=== PATIENT | male | born 1970 | race Caucasian/White ===

== ENCOUNTER 2021-05-09 11:12 | Emergency (ER) | payer OTHER, SELFPAY ==
--- NOTE | ~2021-05-09 | CT_ITS ---
EXAMINATION: CT ABDOMEN AND PELVIS WITHOUT CONTRAST CLINICAL INFORMATION: Right flank pain COMPARISON: None TECHNIQUE: Multidetector volumetric imaging was performed from the superior aspect of the liver through the pubic symphysis. Sagittal and coronal reformatted images were obtained on the technologist's workstation. This CT examination was performed using dose optimization techniques as appropriate, variously including the following: *Automated exposure control *Adjustment of mA and/or kV according to patient size (this includes techniques or standardized protocols for targeted exams where dose is matched to indication/reason for exam; i.e. extremities or head) *Use of iterative reconstruction technique DLP: 843 mGy-cm FINDINGS: LUNG BASES: There are postsurgical changes to the right lower lobe/posterior costophrenic angle. LIVER, GALLBLADDER, AND BILIARY TREE: The liver is normal in size, shape, and attenuation. No focal hepatic lesion or biliary ductal dilatation is present. The gallbladder is unremarkable with no evidence of radiopaque gallstones, gallbladder wall thickening, or obvious pericholecystic inflammatory changes. PANCREAS: Unremarkable. SPLEEN: Unremarkable. ADRENAL GLANDS: Unremarkable. KIDNEYS AND URETERS: There is a horseshoe kidney. No renal stone or hydronephrosis is seen. No ureteral dilatation or ureteral stone is seen. BLADDER: Unremarkable. GASTROINTESTINAL TRACT: There is a small umbilical hernia containing small bowel. There is no evidence of obstruction. There is mild diverticulosis of the colon. The small and large bowel are otherwise unremarkable. The appendix is unremarkable. ABDOMINAL WALL: There is a small umbilical hernia containing small bowel. There is no evidence of obstruction. There is evidence of previous suprapubic hernia repair with mesh. There is a left inguinal hernia containing fat. LYMPH NODES: Normal. VASCULAR: Unremarkable. PELVIC VISCERA: Unremarkable. OSSEOUS STRUCTURES: There are mild degenerative changes of the spine. CT/CT abdomen pelvis wo con IMPRESSION: Horseshoe kidney. No stone or hydronephrosis seen. Small umbilical hernia containing small bowel. No evidence of obstruction. Mild diverticulosis. Fleischner guidelines were followed.
[2021-05-09 11:26] VITALS: BP 155/97; PULSE 87; RESP 16; TEMP 37.1; O2SAT 98; BMI 39.1
--- NOTE | 2021-05-09 11:52 | ED.ABDPAIN ---
HPI - Abdominal Pain General Chief Complaint: Abdominal Pain Stated Complaint: flank pain Time Seen by Provider: 05/09/21 11:37 Source: patient and family Mode of arrival: ambulatory Limitations: no limitations History of Present Illness HPI narrative: 50-year-old male presents emergency department complaining of right flank pain. Patient states he has been having on and off pain has been intermittent for the past 3 weeks he went to the walk-in clinic and was sent here to rule out gallstones. Patient states he does not eat spicy foods or fatty foods he states it is worse with certain movements he denies any falls or injuries he states he had hernia repair in the past but does not feel like that kind of pain. Patient denies chest pain or cough he denies dysuria or frequency though he states at times he does have to urinate more than usual. He denies history of kidney stones. MD elicited complaint: abdominal pain and flank pain Pertinent past history: constipation Related Data Allergies Allergy/AdvReac Type Severity Reaction Status Date / Time Calcium Channel Blocking Allergy Shortness Verified 05/09/21 11:30 Agent Dilt of Breath Review of Systems Review of Systems Review of systems: General: Patient denies any fever chills recent illness or falls Musculoskeletal: Denies back pain or body aches or other injuries HEENT: denies headache, runny nose, ear pain Respiratory: denies shortness of breath, cough Cardiovascular: no chest pain or palpitations : denies dysuria, frequency Abdomen: no nausea vomiting right flank pain Extremities: no swelling, no pain Skin: no diaphoresis Yes all other systems are reviewed and are negative [facility] Past Medical History Medical History (Updated 05/09/21 @ 13:11 by Catalino Biswas DO) Anal fissure GERD (gastroesophageal reflux disease) Hernia Surgical History (Updated 05/09/21 @ 11:29 by Nereida Baker) History of lung biopsy Social History Social History Advance Directives: No Advance Directives Information Provided: No Physical Exam ED Vital Signs: Vital Signs - 24 hr 05/09/21 11:26 Temperature 98.7 F Pulse Rate 87 Respiratory Rate 16 Blood Pressure 155/97 H Pulse Oximetry 98 BMI result Body Mass Index 39.1 General: Well-appearing well-nourished in no signs of distress HEENT: Normocephalic atraumatic Neck: No signs of JVD, no masses no tenderness or lymphadenopathy Cardiovascular: Regular rate and rhythm Respiratory: Clear to auscultation bilaterally Abdomen: Soft nontender no masses no CVA tenderness Extremities: Normal pedal pulses no signs of edema Skin: Dry warm no rashes Back: No tenderness full ROM Procedures Procedure Narrative Procedure Narrative: Bedside ultrasound of the right upper quadrant shows dilated gallbladder with no stones no sonographic Booker sign no sludge in the gallbladder and there was no signs of cholecystitis on ultrasound. MDM - Abdominal Pain MDM Narrative Medical decision making narrative: Concern for kidney stone versus gallstone versus diverticulitis or other intra-abdominal pathology requiring surgery or muscle strain. Patient also states he has history of constipation which could be a factor in this as well. I will give the patient fluids Toradol I will check CBC BMP LFTs lipase and urinalysis. I also sent patient for CT scan. Bedside ultrasound performed that showed patient had dilated gallbladder has not since last night but there was no sinus tones and there is no sonographic Booker sign. 1310 CT and labs are unremarkable patient's main concern was nifedipine ointment that he is using for his anal fissures. He states he gets acid reflux explaining follow up with his doctor but again hold until he sees him. Patient otherwise looks well vitals remained stable I will send patient home with PCP follow-up. Differential Diagnosis Differential diagnosis: Likely abdominal pain, calculus of kidney, constipation, diverticulitis, gastroenteritis, gastritis, pancreatitis and renal colic Lab Data Result diagrams: 05/09/21 12:03 05/09/21 12:03 Labs: Lab Results 05/09/21 05/09/21 05/09/21 Range/Units 12:03 12:03 12:33 WBC 4.9 (4.8-10.8) X10*3/uL RBC 5.48 (4.60-5.80) X10*6/uL Hgb 14.7 (14.0-18.0) g/dl Hct 45.2 (42.0-52.0) % MCV 82.5 (80.0-98.0) fL MCH 26.8 L (27.0-33.0) pg MCHC 32.5 (31.0-36.0) g/dl RDW 13.4 (11.0-16.0) % Plt Count 239 (160-400) X10*3/uL MPV 9.8 (9.4-12.4) fL Immature Gran % (Auto) 0.2 (0.0-0.4) % Neut % (Auto) 60.5 (45-73) % Lymph % (Auto) 25.7 (20-40) % Meagher % (Auto) 6.0 (2-11) % Eos % (Auto) 7.4 H (0-4) % Baso % (Auto) 0.2 (0-2) % Lymph # (Auto) 1.3 (1.2-4.9) X10*3/uL Meagher # (Auto) 0.3 (0.1-1.2) X10*3/uL Eos # (Auto) 0.4 (0.0-0.4) X10*3/uL Baso # (Auto) 0.0 (0.0-0.2) X10*3/uL Abs Immat Gran (auto) 0.01 (0.00-0.03) X10*3/uL Absolute Neuts (auto) 2.9 (2.0-8.3) x10*3/uL Absolute Nucleated RBC 0.000 (0.0-0.012) X10*3/uL Nucleated RBC % (auto) 0.0 (0.0-0.2) /100WBC Sodium 138 (135-145) mmol/L Potassium 4.7 (3.3-5.1) mmol/L Chloride 105 (96-108) mmol/L Carbon Dioxide 27 (22-29) mmol/L Anion Gap 11 L (12-20) BUN 10 (9-16) mg/dL Creatinine 0.83 (0.5-1.4) mg/dL Estim Creat Clear Calc 126.6 Estimated GFR > 60 Random Glucose 97 (60-115) mg/dL Calcium 9.3 (8.4-10.2) mg/dL Total Bilirubin 0.7 (0.0-1.0) mg/dL Direct Bilirubin 0.2 (0.0-0.5) mg/dL AST 16 (5-37) U/L ALT 18 (0-40) U/L Alkaline Phosphatase 70 (39-117) U/L Total Protein 7.4 (6.5-8.0) g/dL Albumin 4.0 (3.5-5.0) g/dL Lipase 16 (8-78) U/L Urine Color STRAW Urine Appearance HAZY Urine pH 7.0 (5.0-8.0) Ur Specific [place] 1.010 (1.005-1.025) Urine Protein NEG (NEG-TRACE) MG/DL Urine Glucose (UA) NEG (NEG) MG/DL Urine Ketones NEG (NEG) MG/DL Urine Blood NEG (NEG) Urine Nitrite NEG (NEG) Ur Leukocyte Esterase NEG (NEG) Discharge Plan Discharge Clinical Impression: Abdominal pain Patient Disposition: Home, Self-Care Instructions: Abdominal Pain (ED) Additional Instructions: Please call follow-up care doctor if you have any other concerns please do not hesitate to come back to the emergency department. He can use Tylenol or ibuprofen for pain in the meantime.
[2021-05-09] MEDS: Ketorolac Tromethamine 15 MG/ML VIAL IVPUSH (12:01)
[2021-05-09] MEDS: 0.9 % Sodium Chloride 1,000 ML 999 ML IV (12:01)
[2021-05-09 12:09] LABS: MANUAL DIFF FLAG NO
[2021-05-09 12:19] LABS: Basophils Percent Auto 0.2 % (0-2); Eosinophils Absolute Auto 0.4 X10*3/uL (0.0-0.4); Eosinophils Percent Auto 7.4 % (0-4); Hematocrit 45.2 % (42.0-52.0); Hemoglobin 14.7 g/dl (14.0-18.0); Imm Gran Abs Auto 0.01 X10*3/uL (0.00-0.03); Imm Gran Pct Auto 0.2 % (0.0-0.4); Lymphocytes Absolute Auto 1.3 X10*3/uL (1.2-4.9); Lymphocytes Percent Auto 25.7 % (20-40); Mean Corpuscular HGB Conc 32.5 g/dl (31.0-36.0); Mean Corpuscular Hemoglobin 26.8 pg (27.0-33.0); Mean Corpuscular Volume 82.5 fL (80.0-98.0); Mean Platelet Volume 9.8 fL (9.4-12.4); Monocytes Absolute Auto 0.3 X10*3/uL (0.1-1.2); Neutrophils Absolute Auto 2.9 x10*3/uL (2.0-8.3); Neutrophils Percent Auto 60.5 % (45-73); Platelet Count 239 X10*3/uL (160-400); Red Blood Count 5.48 X10*6/uL (4.60-5.80); Red Cell Distribution Width 13.4 % (11.0-16.0); White Blood Count 4.9 X10*3/uL (4.8-10.8)
[2021-05-09 12:28] LABS: Alanine Aminotransferase 18 U/L (0-40); Alkaline Phosphatase 70 U/L (39-117); Anion Gap 11 (12-20); Aspartate Amino Transferase 16 U/L (5-37); Bilirubin Direct 0.2 mg/dL (0.0-0.5); Bilirubin Total 0.7 mg/dL (0.0-1.0); Blood Urea Nitrogen 10 mg/dL (9-16); Calcium 9.3 mg/dL (8.4-10.2); Carbon Dioxide 27 mmol/L (22-29); Chloride 105 mmol/L (96-108); Creatinine Clr Calc Pharmacy 126.6; Estimated Glomerular Filt Rate > 60; Glucose Random 97 mg/dL (60-115); Lipase 16 U/L (8-78); Potassium 4.7 mmol/L (3.3-5.1); Sodium 138 mmol/L (135-145); Total Protein 7.4 g/dL (6.5-8.0)
[2021-05-09 12:39] LABS: Appearance Urine HAZY; Color Urine STRAW; Glucose Urine UA NEG (NEG); Leukocyte Esterase Urine NEG (NEG); Nitrite Urine NEG (NEG); Urine Blood NEG (NEG); Urine Ketones NEG (NEG); Urine Protein NEG (NEG-TRACE)
== END 2021-05-09 13:51 | disposition home or self-care (01) ==
PROVIDERS: Emergency Provider Student in an Organized Health Care Education/Training Program; PCP Internal Medicine
DX: R10.9 Unspecified abdominal pain (principal); Z79.899 Other long term (current) drug therapy
CPT/HCPCS: 36415; 74176; 80048; 80076; 81003; 83690; 85025; 96361; 96374; 99283; 99284; J1885

== ENCOUNTER 2022-03-24 13:20 | Emergency (ER) | payer OTHER, SELFPAY ==
--- NOTE | ~2022-03-24 | CT_ITS ---
EXAMINATION: CT ABDOMEN AND PELVIS WITH CONTRAST CLINICAL INFORMATION: 51-year-old with right upper quadrant pain COMPARISON: Right upper quadrant ultrasound from the same day and CT scan from 05/09/2021 TECHNIQUE: Multidetector volumetric images were obtained from the superior aspect of the liver through the pubic symphysis following administration 90mL of Omnipaque 350 intravenous contrast. Sagittal and coronal reformatted images were obtained on the technologist's workstation. Oral contrast: No This CT examination was performed using dose optimization techniques as appropriate, variously including the following: *Automated exposure control *Adjustment of mA and/or kV according to patient size (this includes techniques or standardized protocols for targeted exams where dose is matched to indication/reason for exam; i.e. extremities or head) *Use of iterative reconstruction technique DLP: 1036 mGy-cm FINDINGS: LUNG BASES: The visualized lung bases are unremarkable. LIVER, GALLBLADDER, AND BILIARY TREE: The liver is normal in size, shape, and attenuation. No focal hepatic lesion or biliary ductal dilatation is present. The gallbladder is unremarkable with no evidence of radiopaque gallstones, gallbladder wall thickening, or obvious pericholecystic inflammatory changes. PANCREAS: Unremarkable. SPLEEN: Spleen is mildly enlarged measured 13.5 cm. ADRENAL GLANDS: Unremarkable. KIDNEYS AND URETERS: There is a horseshoe kidney without hydroureteronephrosis or nephrolithiasis. BLADDER: Unremarkable. GASTROINTESTINAL TRACT: The small and large bowel are unremarkable. The appendix is unremarkable. ABDOMINAL WALL: There are small but new since previous study fat-containing umbilical and paraumbilical hernia. Patient is status post anterior abdominal wall hernia repair with mesh There is new fat-containing left inguinal hernia. LYMPH NODES: Normal. VASCULAR: Unremarkable. PELVIC VISCERA: Unremarkable. OSSEOUS STRUCTURES: Unremarkable. CT/CT abdomen pelvis w IV con IMPRESSION: 1. Mild splenomegaly. 2. Status post anterior abdominal wall hernia repair with mesh. 3. Small fat-containing umbilical and paraumbilical hernia. 4. Fat-containing left inguinal hernia. 5. Horseshoe kidney Fleischner guidelines were followed.
--- NOTE | ~2022-03-24 | US_ITS ---
EXAMINATION: US ABDOMEN LIMITED CLINICAL INFORMATION: Right flank pain. COMPARISON: CT scan of May 19, 2021 TECHNIQUE: Real-time imaging of the right upper quadrant abdominal viscera. Study was performed at bedside. FINDINGS: PANCREAS: Pancreatic head and body appear unremarkable without evidence of abnormal mass or peripancreatic inflammatory change. The tail is obscured by overlying bowel gas. LIVER: There is increased in echogenicity homogeneously of the liver consistent with fatty infiltration. The liver is normal in size. The liver contour is normal. No focal hepatic lesion. There is no intrahepatic biliary duct dilatation seen. GALLBLADDER: Normal. The gallbladder is physiologically distended without evidence of stones, sludge, polyps, wall thickening or pericholecystic fluid. COMMON BILE DUCT: Normal in caliber measuring 0.4 cm in diameter. RIGHT KIDNEY: Normal. No hydronephrosis. No renal calculi or focal parenchymal lesions. The kidney measures 12.9 cm in maximum dimension. Patient has a known horseshoe kidney with fusion of the lower poles bilaterally. On this ultrasound study the lower poles are not imaged for technical reasons. FREE FLUID: None. US/US abdomen limited IMPRESSION: No right upper quadrant ultrasound abnormality identified. No right hydronephrosis.
[2022-03-24 13:27] VITALS: BP 150/88; PULSE 102; RESP 18; TEMP 36.4; O2SAT 98; BMI 40.7
--- NOTE | 2022-03-24 13:28 | ED.ABDPAIN ---
HPI - Abdominal Pain General Chief Complaint: Abdominal Pain <Kelsie Hui CNP - Last Filed: 03/24/22 13:36> Stated Complaint: R abd pain, bloated <Kelsie Hui CNP - Last Filed: 03/24/22 13:36> Time Seen by Provider: 03/24/22 14:01 <Kelsie Hui CNP - Last Filed: 03/24/22 13:36> Source: patient and family ( at bedside) <J CARLOS Cooney Last Filed: 03/24/22 16:46> Mode of arrival: ambulatory <J CARLOS Cooney Last Filed: 03/24/22 16:46> Limitations: no limitations <J CARLOS Cooney Last Filed: 03/24/22 16:46> History of Present Illness HPI narrative: 51yoM c PMHx of hernia, GERD and anal fissure who is presenting to the ER with at bedside with complaints of right flank abdominal pain that started last week that has been intermittent although is now worsening. Reports associated nausea and increased urinary frequency / urgency. He reports that this started after his dose of methotrexate went from 4 tablets to 6 tablets last week. He denies any fevers, chills, dizziness, headaches, neck pain/ stiffness, trouble swallowing or breathing, chest pain or shortness of breath, dyspnea on exertion, orthopnea, palpitations, paresthesias, radiation of the abdominal pain, black or bloody emesis, black or bloody stools, rashes, recent falls or trauma, urinary bowel incontinence or retention, dysuria, hematuria, abnormal penile discharge, lower extremity edema or calf tenderness, recent travel or sick contacts, others with similar symptoms, possible bad food exposure, recent hospitalization or antibiotic usage or any other symptoms complaints or concerns at this time. <J CARLOS Cooney - Last Filed: 03/24/22 16:46> MD elicited complaint: abdominal pain and flank pain <J CARLOS Cooney Last Filed: 03/24/22 16:46> Onset (ago): week(s) (1) <J CARLOS Cooney Last Filed: 03/24/22 16:46> Pain Consistency: intermittent <J CARLOS Cooney Last Filed: 03/24/22 16:46> Location: R flank <J CARLOS Cooney - Last Filed: 03/24/22 16:46> Severity: mild <J CARLOS Cooney Last Filed: 03/24/22 16:46> Quality: aching <J CARLOS Cooney - Last Filed: 03/24/22 16:46> Radiation: none <J CARLOS Cooney - Last Filed: 03/24/22 16:46> Migration to: no migration <J CARLOS Cooney - Last Filed: 03/24/22 16:46> Exacerbating factors: nothing <J CARLOS Cooney Last Filed: 03/24/22 16:46> Relieving factors: nothing <J CARLOS Cooney Last Filed: 03/24/22 16:46> Associated symptoms: nausea and other ( urinary frequency/urgency) <J CARLOS Cooney Last Filed: 03/24/22 16:46> Related Data Home Medications: Previous Rx's Medication Instructions Recorded cyclobenzaprine 10 mg tablet 10 mg PO Q8H #14 tabs 03/24/22 naproxen 500 mg tablet 500 mg PO BID PRN pain #14 tabs 03/24/22 ondansetron 4 mg disintegrating 4 mg PO Q8H #14 tabs 03/24/22 tablet <Kelsie Hui CNP - Last Filed: 03/24/22 13:36> Allergies/Adverse Reactions: Allergies Allergy/AdvReac Type Severity Reaction Status Date / Time Calcium Channel Blocking Allergy Shortness Verified 03/24/22 13:34 Agent Dilt of Breath <Kelsie Hui CNP - Last Filed: 03/24/22 13:36> Review of Systems Review of Systems Constitutional : No Weight loss, No Fever, No Chills, No Night Sweats, No Fatigue, No Malaise ENT/Mouth : No Hearing loss, No Ear Pain, No Nasal Congestion, No Sinus Pain, No Hoarseness, No sore throat, No Rhinorrhea, No Swallowing Difficulty Eyes: No Eye Pain, No Swelling, No Redness, No Foreign Body, No Discharge, No Vision Changes Cardiovascular : No Chest Pain, No SOB, No Dyspnea on Exertion, No Orthopnea, No Edema, No Palpitations Respiratory : No Cough, No Sputum, No Wheezing, No Smoke Exposure, No Dyspnea Gastrointestinal : + Nausea, No Vomiting, No Diarrhea, No Constipation, + abdominal Pain, No Hematochezia, No Melena Genitourinary : no irregular bleeding, No Dysuria, + Urinary Frequency, No Hematuria, No Urinary Incontinence, + Urgency, + Flank Pain, No Urinary Flow Changes, No Hesitancy Musculoskeletal : No joint pain, + Myalgias, No Joint Swelling Skin : No Skin Lesions, No rash Neuro : No Weakness, No Numbness, No Paresthesias, No Loss of Consciousness, No Dizziness, No Headache Psych : No Anxiety/Panic, No Depression, No SI/HI/AH/VH, No Social Issues, Heme/Lymph: No Bruising, No Bleeding,No Lymphadenopathy Endocrine : No Polyuria, No Polydipsia, No Temperature Intolerance <J CARLOS Cooney - Last Filed: 03/24/22 16:46> Yes all other systems are reviewed and are negative <J CARLOS Cooney - Last Filed: 03/24/22 16:46> [facility] Past Medical History Attestation statement: The following information was validated with the patient. <J CARLOS Cooney - Last Filed: 03/24/22 16:46> Source: old records reviewed, obtained from family and nursing notes reviewed <J CARLOS Cooney - Last Filed: 03/24/22 16:46> Medical History: Medical History Anal fissure GERD (gastroesophageal reflux disease) Hernia <Kelsie Hui CNP - Last Filed: 03/24/22 13:36> Surgical History: Surgical History History of lung biopsy <Kelsie Hui CNP - Last Filed: 03/24/22 13:36> Social History Social History: Social History Smoked in Last 30 Days: No Use of substances other than those prescribed or required for medical reasons: No Advance Directives: No Advance Directives Information Provided: Yes <Kelsie Hui CNP - Last Filed: 03/24/22 13:36> Physical Exam ED Vital Signs: Vital Signs - 24 hr 03/24/22 13:27 03/24/22 15:01 Temperature 97.6 F 98.2 F Pulse Rate 102 H 86 Respiratory Rate 18 16 Blood Pressure 150/88 H 118/82 Pulse Oximetry 98 96 Oxygen Delivery Method Room Air Room Air BMI result Body Mass Index 40.7 <Kelsie Hui CNP - Last Filed: 03/24/22 13:36> Vital Signs - 24 hr 03/24/22 13:27 03/24/22 15:01 Temperature 97.6 F 98.2 F Pulse Rate 102 H 86 Respiratory Rate 18 16 Blood Pressure 150/88 H 118/82 Pulse Oximetry 98 96 Oxygen Delivery Method Room Air Room Air BMI result Body Mass Index 40.7 Vital signs have been reviewed Patient blood pressure 150/88. Pulse 102. Respiration 18. Temperature 97.6 degrees. Oxygen saturation 98% on room air. <J CARLOS Cooney - Last Filed: 03/24/22 16:46> Appearance: Alert. Oriented X3. No acute distress. Head: Normal external exam. Normocephalic. Eyes: PERRLA. EOMI. Conjunctiva and sclera normal. Eyelids normal. ENT: Pharynx normal. Uvula midline. Moist mucous membranes. No trismus noted. No drooling noted. No muffled voice noted. Neck: Normal inspection. Neck supple. FROM. No adenopathy. No meningeal signs. CVS: Normal heart rate and rhythm. Heart sound normal. No murmurs noted. Pulses normal throughout. Respiratory: No respiratory distress. Painless inspiration. Breath sounds normal. No wheezes/rales/rhonchi noted. Chest nontender. No accessory muscle usage noted or decreased air movement noted. Abdomen: Soft and mild tenderness palpation to the right side of the abdomen/right flank. Nondistended. No guarding. No rigidity. Bowel sounds normal in all 4 quadrants. No distention noted. No organomegaly noted. No visible injury noted. No rebound tenderness. Negative Rovsing sign. Negative obturator's sign. Negative psoas sign. Negative Booker sign. Back: No CVA tenderness. Full range of motion noted. Skin: Skin warm and dry. Normal skin color. Normal skin turgor. No rashes/lesions/lacerations noted. Extremities: Extremities exhibit normal range of motion. Extremities nontender. Neuro: Oriented X 3. No motor deficit. No sensory deficit. Reflexes normal. Normal steady gait. CN's II-XII intact bilaterally? <J CARLOS Cooney - Last Filed: 03/24/22 16:46> Course Course Course Narrative: This is an RME: Additional HPI, ROS, PE not included below will be deferred to primary provider. Patient is a 51-year-old male who presents emergency department for evaluation of abdominal pain. Reports right sided abdominal pain, bloating, nausea, dry heaves. symptom onset last week, not worsening, but has no improvement. Reports history of arthritis, currently taking Methotrexate was increased from 4 tablets weekly to 6 tablets weekly, and the following week these symptoms began, states he is insure if this is related. PE: RUQ tenderness to palpation Plan: labs, urinalysis, US ABD <Kelsie Hui CNP - Last Filed: 03/24/22 13:36> Reevaluation(s) Reevaluation #1: 51yoM c PMHx of hernia, GERD and anal fissure who is presenting to the ER with at bedside with complaints of right flank abdominal pain that started last week that has been intermittent although is now worsening. Reports associated nausea and increased urinary frequency / urgency. He reports that this started after his dose of methotrexate went from 4 tablets to 6 tablets last week. This is a 51yoM with R sided abdominal pain, consistent with Possible kidney stone. Differential diagnosis includes UTI vs pyelonephritis. Abdominal exam without peritoneal signs. No evidence of acute abdomen at this time. Well appearing. Moderate suspicion for acute hepatobiliary disease (includng acute cholecystitis). Less likely to represent acute pancreatitis, PUD (including perforation), acute infectious processes (pneumonia, hepatitis), atypical appendicitis, vascular catastrophe, bowel obstruction or viscus perforation. Presentation not consistent with other acute, emergent causes of abdominal pain at this time. Plan: labs, UA, pain control, US abd Limited and a CT scan of abdomen pelvis IV contrast. provide IV fluids, Toradol and Zofran and re-evaluate. <J CARLOS Cooney - Last Filed: 03/24/22 16:46> Time: 14:10 <J CARLOS Cooney - Last Filed: 03/24/22 16:46> Reevaluation #2: labs reviewed - random glucose 124. Otherwise all other labs are within normal limits. - UA within normal limits no evidence of UTI. Imaging - Right upper quadrant ultrasound. IMPRESSION: No right upper quadrant ultrasound abnormality identified. No right hydronephrosis. - CT scan abdomen pelvis with IV contrast IMPRESSION: 1.? Mild splenomegaly. 2.? Status post anterior abdominal wall hernia repair with mesh. 3.? Small fat-containing umbilical and paraumbilical hernia. 4.? Fat-containing left inguinal hernia. 5. Horseshoe kidney Fleischner guidelines were followed. therefore patient most likely muscular skeletal pain or adverse effect to his methotrexate. He is able to tolerate p.o. fluids/solids. Therefore will DC home with symptomatic treatment instructions return if any new or worsening symptoms to follow up with his primary care provider. Patient at bedside Understand and agree with this plan. <J CARLOS Cooney - Last Filed: 03/24/22 16:46> Time: 16:29 <J CARLOS Cooney - Last Filed: 03/24/22 16:46> Medical Decision Making Lab Data MDM Lab Attestation statement: I reviewed the patient's lab results. <J CARLOS Cooney - Last Filed: 03/24/22 16:46> Result Diagrams: 03/24/22 13:42 03/24/22 13:42 <Kelsie Hui CNP - Last Filed: 03/24/22 13:36> Labs: Lab Results 03/24/22 03/24/22 03/24/22 Range/Units 13:42 13:42 14:15 WBC 5.8 (4.8-10.8) X10*3/uL RBC 5.41 (4.60-5.80) X10*6/uL Hgb 15.0 (14.0-18.0) g/dl Hct 44.4 (42.0-52.0) % MCV 82.1 (80.0-98.0) fL MCH 27.7 (27.0-33.0) pg MCHC 33.8 (31.0-36.0) g/dl RDW 14.0 (11.0-16.0) % Plt Count 261 (160-400) X10*3/uL MPV 9.6 (9.4-12.4) fL Immature Gran % (Auto) 0.2 (0.0-0.4) % Neut % (Auto) 62.9 (45-73) % Lymph % (Auto) 26.7 (20-40) % King % (Auto) 5.5 (2-11) % Eos % (Auto) 4.5 H (0-4) % Baso % (Auto) 0.2 (0-2) % Lymph # (Auto) 1.5 (1.2-4.9) X10*3/uL King # (Auto) 0.3 (0.1-1.2) X10*3/uL Eos # (Auto) 0.3 (0.0-0.4) X10*3/uL Baso # (Auto) 0.0 (0.0-0.2) X10*3/uL Abs Immat Gran (auto) 0.01 (0.00-0.03) X10*3/uL Absolute Neuts (auto) 3.6 (2.0-8.3) x10*3/uL Absolute Nucleated RBC 0.000 (0.0-0.012) X10*3/uL Nucleated RBC % (auto) 0.0 (0.0-0.2) /100WBC Sodium 142 (135-145) mmol/L Potassium 4.4 (3.3-5.1) mmol/L Chloride 107 (96-108) mmol/L Carbon Dioxide 25 (22-29) mmol/L Anion Gap 14 (12-20) BUN 13 (9-16) mg/dL Creatinine 0.84 (0.5-1.4) mg/dL Estim Creat Clear Calc 126.3 Estimated GFR > 60 Random Glucose 124 H (60-115) mg/dL Calcium 9.0 (8.4-10.2) mg/dL Magnesium 2.0 (1.6-2.6) mg/dL Total Bilirubin 0.6 (0.0-1.0) mg/dL AST 15 (5-37) U/L ALT 16 (0-40) U/L Alkaline Phosphatase 81 (39-117) U/L Total Protein 6.9 (6.5-8.0) g/dL Albumin 3.9 (3.5-5.0) g/dL Lipase 17 (8-78) U/L Urine Color Yellow Urine Appearance Clear Urine pH 6.0 (5.0-9.0) Ur Specific [place] 1.015 (1.005-1.025) Urine Protein Negative (Neg-Trace) mg/dL Urine Glucose (UA) Negative (Negative) mg/dL Urine Ketones Negative (Negative) mg/dL Urine Blood Negative (Negative) Urine Nitrite Negative (Negative) Ur Leukocyte Esterase Negative (Negative) <Kelsie Hui, RIDING COACH - Last Filed: 03/24/22 13:36> Lab Results 03/24/22 03/24/22 03/24/22 Range/Units 13:42 13:42 14:15 WBC 5.8 (4.8-10.8) X10*3/uL RBC 5.41 (4.60-5.80) X10*6/uL Hgb 15.0 (14.0-18.0) g/dl Hct 44.4 (42.0-52.0) % MCV 82.1 (80.0-98.0) fL MCH 27.7 (27.0-33.0) pg MCHC 33.8 (31.0-36.0) g/dl RDW 14.0 (11.0-16.0) % Plt Count 261 (160-400) X10*3/uL MPV 9.6 (9.4-12.4) fL Immature Gran % (Auto) 0.2 (0.0-0.4) % Neut % (Auto) 62.9 (45-73) % Lymph % (Auto) 26.7 (20-40) % King % (Auto) 5.5 (2-11) % Eos % (Auto) 4.5 H (0-4) % Baso % (Auto) 0.2 (0-2) % Lymph # (Auto) 1.5 (1.2-4.9) X10*3/uL King # (Auto) 0.3 (0.1-1.2) X10*3/uL Eos # (Auto) 0.3 (0.0-0.4) X10*3/uL Baso # (Auto) 0.0 (0.0-0.2) X10*3/uL Abs Immat Gran (auto) 0.01 (0.00-0.03) X10*3/uL Absolute Neuts (auto) 3.6 (2.0-8.3) x10*3/uL Absolute Nucleated RBC 0.000 (0.0-0.012) X10*3/uL Nucleated RBC % (auto) 0.0 (0.0-0.2) /100WBC Sodium 142 (135-145) mmol/L Potassium 4.4 (3.3-5.1) mmol/L Chloride 107 (96-108) mmol/L Carbon Dioxide 25 (22-29) mmol/L Anion Gap 14 (12-20) BUN 13 (9-16) mg/dL Creatinine 0.84 (0.5-1.4) mg/dL Estim Creat Clear Calc 126.3 Estimated GFR > 60 Random Glucose 124 H (60-115) mg/dL Calcium 9.0 (8.4-10.2) mg/dL Magnesium 2.0 (1.6-2.6) mg/dL Total Bilirubin 0.6 (0.0-1.0) mg/dL AST 15 (5-37) U/L ALT 16 (0-40) U/L Alkaline Phosphatase 81 (39-117) U/L Total Protein 6.9 (6.5-8.0) g/dL Albumin 3.9 (3.5-5.0) g/dL Lipase 17 (8-78) U/L Urine Color Yellow Urine Appearance Clear Urine pH 6.0 (5.0-9.0) Ur Specific [place] 1.015 (1.005-1.025) Urine Protein Negative (Neg-Trace) mg/dL Urine Glucose (UA) Negative (Negative) mg/dL Urine Ketones Negative (Negative) mg/dL Urine Blood Negative (Negative) Urine Nitrite Negative (Negative) Ur Leukocyte Esterase Negative (Negative) <J CARLOS Cooney - Last Filed: 03/24/22 16:46> Independent Interpretation Interpretation: Abdominal ultrasound limited EXAMINATION: US ABDOMEN LIMITED CLINICAL INFORMATION: Right flank pain. COMPARISON: CT scan of May 19, 2021 TECHNIQUE: Real-time imaging of the right upper quadrant abdominal viscera. Study was performed at bedside. FINDINGS: PANCREAS: Pancreatic head and body appear unremarkable without evidence of abnormal mass or peripancreatic inflammatory change. The tail is obscured by overlying bowel gas. LIVER: There is increased in echogenicity homogeneously of the liver consistent with fatty infiltration. The liver is normal in size. The liver contour is normal. No focal hepatic lesion. There is no intrahepatic biliary duct dilatation seen. GALLBLADDER: Normal. The gallbladder is physiologically distended without evidence of stones, sludge, polyps, wall thickening or pericholecystic fluid. COMMON BILE DUCT: Normal in caliber measuring 0.4 cm in diameter. RIGHT KIDNEY: Normal. No hydronephrosis. No renal calculi or focal parenchymal lesions. The kidney measures 12.9 cm in maximum dimension. Patient has a known horseshoe kidney with fusion of the lower poles bilaterally. On this ultrasound study the lower poles are not imaged for technical reasons. FREE FLUID: None. US/US abdomen limited IMPRESSION: No right upper quadrant ultrasound abnormality identified. No right hydronephrosis. CT scan abdomen pelvis with IV contrast COMPARISON: CT scan of May 19, 2021 TECHNIQUE: Real-time imaging of the right upper quadrant abdominal viscera. Study was performed at bedside. FINDINGS: PANCREAS: Pancreatic head and body appear unremarkable without evidence of abnormal mass or peripancreatic inflammatory change. The tail is obscured by overlying bowel gas. LIVER: There is increased in echogenicity homogeneously of the liver consistent with fatty infiltration. The liver is normal in size. The liver contour is normal. No focal hepatic lesion. There is no intrahepatic biliary duct dilatation seen. GALLBLADDER: Normal. The gallbladder is physiologically distended without evidence of stones, sludge, polyps, wall thickening or pericholecystic fluid. COMMON BILE DUCT: Normal in caliber measuring 0.4 cm in diameter. RIGHT KIDNEY: Normal. No hydronephrosis. No renal calculi or focal parenchymal lesions. The kidney measures 12.9 cm in maximum dimension. Patient has a known horseshoe kidney with fusion of the lower poles bilaterally. On this ultrasound study the lower poles are not imaged for technical reasons. FREE FLUID: None. US/US abdomen limited IMPRESSION: No right upper quadrant ultrasound abnormality identified. No right hydronephrosis. <J CARLOS Cooney - Last Filed: 03/24/22 16:46> Radiology Impression Discussion of test interpretation with radiology: I have reviewed the radiologist's reading. <J CARLOS Cooney - Last Filed: 03/24/22 16:46> Independent Historian Clinical information obtained from an independent historian. History obtained from or confirmed by: Spouse <J CARLOS Cooney - Last Filed: 03/24/22 16:46> Medications Administered Discontinued Medications Generic Name Dose Route Start Last Admin Trade Name Freq PRN Reason Stop Dose Admin Iohexol 100 ml 03/24/22 15:57 03/24/22 15:58 Iohexol 350 Mg/Ml 100 Ml Infus..Btl IV 03/24/22 15:58 90 ml ONCE ONE Administration Ketorolac Tromethamine 60 mg 03/24/22 14:39 03/24/22 15:33 Ketorolac Tromethamine 60 Mg/2 Ml Vial IM 03/24/22 14:40 60 mg ONCE ONE Administration <Kelsie Hui CNP - Last Filed: 03/24/22 13:36> Medications Administered Discontinued Medications Generic Name Dose Route Start Last Admin Trade Name Freq PRN Reason Stop Dose Admin Iohexol 100 ml 03/24/22 15:57 03/24/22 15:58 Iohexol 350 Mg/Ml 100 Ml Infus..Btl IV 03/24/22 15:58 90 ml ONCE ONE Administration Ketorolac Tromethamine 60 mg 03/24/22 14:39 03/24/22 15:33 Ketorolac Tromethamine 60 Mg/2 Ml Vial IM 03/24/22 14:40 60 mg ONCE ONE Administration <J CARLOS Cooney - Last Filed: 03/24/22 16:46> Discharge Plan Discharge Clinical Impression: Nausea, Right lateral abdominal pain <Kelsie Hui CNP - Last Filed: 03/24/22 13:36> Patient Disposition: Home, Self-Care <Kelsie Hui CNP - Last Filed: 03/24/22 13:36> Instructions: Acute Nausea and Vomiting (ED), Acute Abdominal Pain (ED) <Kelsie Hui CNP - Last Filed: 03/24/22 13:36> Prescriptions: New ondansetron 4 mg tablet,disintegrating 4 mg PO Q8H Qty: 14 0RF naproxen 500 mg tablet 500 mg PO BID PRN (Reason: pain) Qty: 14 0RF cyclobenzaprine 10 mg tablet 10 mg PO Q8H Qty: 14 0RF <Kelsie Hui CNP - Last Filed: 03/24/22 13:36> Referrals: Adam Villanueva III, MD [Primary Care Provider] - 2 days <Kelsie Hui CNP - Last Filed: 03/24/22 13:36>
[2022-03-24 13:47] LABS: Basophils Percent Auto 0.2 % (0-2); Eosinophils Absolute Auto 0.3 X10*3/uL (0.0-0.4); Eosinophils Percent Auto 4.5 % (0-4); Hematocrit 44.4 % (42.0-52.0); Imm Gran Abs Auto 0.01 X10*3/uL (0.00-0.03); Imm Gran Pct Auto 0.2 % (0.0-0.4); Lymphocytes Absolute Auto 1.5 X10*3/uL (1.2-4.9); Lymphocytes Percent Auto 26.7 % (20-40); MANUAL DIFF FLAG NO; Mean Corpuscular HGB Conc 33.8 g/dl (31.0-36.0); Mean Corpuscular Hemoglobin 27.7 pg (27.0-33.0); Mean Corpuscular Volume 82.1 fL (80.0-98.0); Mean Platelet Volume 9.6 fL (9.4-12.4); Monocytes Absolute Auto 0.3 X10*3/uL (0.1-1.2); Monocytes Percent Auto 5.5 % (2-11); Neutrophils Absolute Auto 3.6 x10*3/uL (2.0-8.3); Neutrophils Percent Auto 62.9 % (45-73); Platelet Count 261 X10*3/uL (160-400); Red Blood Count 5.41 X10*6/uL (4.60-5.80); White Blood Count 5.8 X10*3/uL (4.8-10.8)
[2022-03-24 14:10] LABS: Alanine Aminotransferase 16 U/L (0-40); Albumin Level 3.9 g/dL (3.5-5.0); Alkaline Phosphatase 81 U/L (39-117); Anion Gap 14 (12-20); Aspartate Amino Transferase 15 U/L (5-37); Bilirubin Total 0.6 mg/dL (0.0-1.0); Blood Urea Nitrogen 13 mg/dL (9-16); Carbon Dioxide 25 mmol/L (22-29); Chloride 107 mmol/L (96-108); Creatinine Clr Calc Pharmacy 126.3; Estimated Glomerular Filt Rate > 60; Glucose Random 124 mg/dL (60-115); Lipase 17 U/L (8-78); Potassium 4.4 mmol/L (3.3-5.1); Sodium 142 mmol/L (135-145); Total Protein 6.9 g/dL (6.5-8.0)
[2022-03-24 14:21] LABS: Appearance Urine Clear; Color Urine Yellow; Glucose Urine UA Negative (Negative); Leukocyte Esterase Urine Negative (Negative); Nitrite Urine Negative (Negative); Specific Gravity - Urine 1.015 (1.005-1.025); Urine Blood Negative (Negative); Urine Ketones Negative (Negative); Urine Protein Negative (Neg-Trace)
[2022-03-24 15:01] VITALS: BP 118/82; PULSE 86; RESP 16; TEMP 36.8; O2SAT 96
[2022-03-24] MEDS: Ketorolac Tromethamine 60 MG/2 ML VIAL IM (15:33)
[2022-03-24] MEDS: iohexoL 350 MG/ML 100 ML INFUS..BTL IV (15:58)
[2022-03-24 16:32] VITALS: BP 131/84; PULSE 83; TEMP 36.7; O2SAT 95
== END 2022-03-24 17:02 | disposition home or self-care (01) ==
PROVIDERS: Nurse Practitioner Family; Physician Assistant Medical; Emergency Provider Emergency Medicine; PCP Internal Medicine
DX: R10.11 Right upper quadrant pain (principal); R35.0 Frequency of micturition; R11.2 Nausea with vomiting, unspecified; Z79.899 Other long term (current) drug therapy
CPT/HCPCS: 36415; 74177; 76705; 80053; 81003; 83690; 83735; 85025; 99284; J1885; Q9967

== ENCOUNTER 2023-06-12 23:11 | Emergency (ER) | payer OTHER, SELFPAY ==
--- NOTE | ~2023-06-12 | XR_ITS ---
EXAMINATION: XR CHEST CLINICAL INFORMATION: Cough. COMPARISON: None available. TECHNIQUE: 2 views of the chest were obtained. FINDINGS: The cardiomediastinal silhouette is normal. There appears to be minimal scarring right midlung field versus surgical clip. The lungs are otherwise clear. There are no significant pleural effusions. The bony structures and soft tissues are unremarkable. XR/XR chest 2V IMPRESSION: No acute cardiopulmonary disease.
[2023-06-12 23:13] VITALS: BP 149/105; PULSE 112; RESP 18; TEMP 36.6; O2SAT 95; BMI 40.7
[2023-06-12 23:53] VITALS: BP 143/90; PULSE 111; RESP 17; TEMP 36.3; O2SAT 95
--- OUTSIDE RECORDS SUMMARY | 2023-06-13 00:04 | XMS_ITS | Continuity of Care Document ---
Author Organization [facility] Adult Address [address] [place] [address]- Care Team Providers Care Game Breeding Farm Manager Name Role Phone Rossy Salazar Primary Care Physician Encounter [facility] [place] Date(s): 07/03/22 - 08/02/22 [facility] Adult [address] [place] [address]- Allergies, Adverse Reactions, Alerts Substance Reaction Severity Status metoprolol Active Bactrim Active Immunizations Given and Recorded Vaccine Date Status Refusal Reason tetanus/diphtheria/pertussis, acel(Tdap) 10/26/21 Recorded tetanus/diphtheria/pertussis, acel(Tdap) 12/17/10 Recorded SARS-CoV-2 (COVID-19) mRNA BNT-162b2 vac 11/25/20 Recorded SARS-CoV-2 (COVID-19) mRNA BNT-162b2 vac 11/04/20 Recorded influenza virus vaccine, inactivated 01/21/20 Clark rded influenza virus vaccine, inactivated 12/12/14 Clark rded influenza virus vaccine, inactivated 1 11/17/13 Gi joo influenza virus vaccine, inactivated 01/11/13 Clark rded influenza virus vaccine, inactivated 11/18/11 Clark rded pneumococcal 23-valent vaccine 12/26/11 Given tetanus-diphtheria toxoids (Td) 03/22/05 Recorded 1Admin Note: CDC Information Sheet given VIS (10/19/13) Medications cimetidine 400 mg oral tablet 1 tablet, By Mouth, 2 times a day, # 60 tablet, 0 Refills, Maintenance, 07/30/22 7:42:00 EDT, [facility], 170, cm, 07/03/22 7:53:00 EDT, Height Start Date: 07/30/22 Stop Date: 08/29/22 Status: Ordered Flonase 50 mcg/inh nasal spray 1 sprays, Nares, Both, 2 times a day, # 16 Gm, 4 Refills, Maintenance, 07/03/22 7:50:00 EDT, [place],[facility]/pharmacy #[id number], Partial fill upon patient request if the prescription is for a schedule II opioid drug., 1 sprays Nares, Both 2 times a day, 170, c... Start Date: 07/03/22 Status: Ordered Folic Acid Daily, 0 Refills, Maintenance, 06/19/22 9:31:00 EDT, Partial fill upon patient request if the prescription is for a schedule II opioid drug. Start Date: 06/19/22 Status: Ordered lisinopril 10 mg oral tablet 10 mg, 1, tablet, By Mouth, Daily, # 90 tablet, Refills 3, Tot. Refills 3, Maintenance, 07/03/22 7:50:00 EDT, Route to Pharmacy Electronically, [facility]/pharmacy #[id number], Partial fill upon patient request if the prescription is for a schedule II opioid drug.... Start Date: 07/03/22 Status: Ordered methotrexate 2.5 mg oral tablet 1 tablet = 2.5 mg, By Mouth, Every week, # 4 tablet, 0 Refills, Maintenance, 06/19/22 9:31:00 EDT, Tablet, Partial fill upon patient request if the prescription is for a schedule II opioid drug. 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 Hepatic lesion Confirmed Active 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 Severe obesity Confirmed Active Fatty liver 1 Confirmed Active 1US Abdomen 11/02/2021 Social History Social History Type Response Smoking Status Former smoker; Tobac co user in household: No entered on: 05/26/13 Sex Patient Care team information Care Team Personnel Name: Rossy Salazar Position: [facility] PCO Associate Professional Member Role: PCP Address: Address: [address] [place] [address] [place] [address]- [place] Name: Merlene Weldon NP Position: [facility] Associate Professional Member Role: Primary Care Nurse Address: Address: [address] [place] [address] Trauma and [place] [address]- [place] Name: Catalino Michelle RN Position: S RN Member Role: Primary Care Nurse Care Team Related Persons Name: VENESSA BELLA Address: home [address] [place] [address] Name: ED BELLA Address: home [address] [place] [address]
--- OUTSIDE RECORDS SUMMARY | 2023-06-13 00:04 | XMS_ITS | Continuity of Care Document ---
Author Organization [facility] Adult Address [address] [place] [address]- Care Team Providers Care Artistic Director Name Role Phone Rich KELLY MD, Adam Lopez Primary Care Physician [phone] Encounter [facility] [place] Date(s): 03/21/22 - 04/20/22 [facility] Adult [address] [place] [address]- Allergies, Adverse Reactions, Alerts Substance Reaction Severity [...] CDC Information Sheet given VIS (10/19/13) Medications Aspir 81 = 81 mg, By Mouth, Daily, 0 Refills, Maintenance, 06/23/13 12:47:14 Start Date: 06/23/13 Status: Ordered Ativan 1 mg oral tablet 1 tablet = 1 mg, By Mouth, Daily at bedtime, PRN Spasm, # 7 tablet, 0 Refills, Maintenance, 02/24/14 10:21:45 Start Date: 02/24/14 Stop Date: 03/03/14 Status: Ordered diltiazem 360 mg/24 hours oral capsule, extended release 1 capsule = 360 mg, By Mouth, Daily, # 30 capsule, 0 Refills, Maintenance, CR Capsule Start Date: 12/25/11 Status: Ordered Fluticasone Nasal Daily, 0 Refills, Maintenance, 05/26/13 9:57:47 Start Date: 05/26/13 Status: Ordered lisinopril 5 mg oral tablet 0.5 tablet = 2.5 mg, By Mouth, Daily, 0 Refills, Maintenance, 05/26/13 9:57:10 Start Date: 05/26/13 Status: Ordered orphenadrine 100 mg oral tablet, extended release 1 tablet = 100 mg, By Mouth, 2 times a day, # 14 tablet, 0 Refills, Maintenance, 02/24/14 10:19:16 Start Date: 02/24/14 Stop Date: 03/03/14 Status: Ordered pantoprazole 40 mg oral granule 1 each = 40 mg, By Mouth, Daily, 0 Refills, Maintenance, 05/26/13 9:57:22 Start Date: 05/26/13 Status: Ordered Percocet-5/325 325 mg-5 mg oral tablet 1, tablet, By Mouth, Every 6 hours, PRN, # 12 tablet, Refills 0, Tot. Refills 0, Maintenance, Pain , Moderate, 04/27/17 1:03:30, Print Requisition Start Date: 04/27/17 Stop Date: 04/30/17 Status: Ordered prednisone 20 mg oral tablet 2 tablet = 40 mg, By Mouth, Daily, # 14 tablet, 0 Refills, Maintenance, 02/24/14 10:21:37 Start Date: 02/24/14 Stop Date: 03/03/14 Status: Ordered Symbicort 160mcg/4.5mcg Inhaler 2 puffs, Inhalation, Daily, # 10.2 Gm, 11 Refills, Maintenance, 05/26/13 10:14:27, Aerosol, 2 puffsInhalation 2 times a day Start Date: 05/26/13 Status: Ordered ZyrTEC 10 mg oral tablet 1 tablet = 10 mg, By Mouth, Daily, PRN for allergy symptoms, # 10 tablet, 0 Refills, Maintenance, 01/27/19 19:25:15 EST, Tablet Start Date: 01/27/19 Status: Ordered Problem List Condition Confirmation Course [...] 2011 Confirmed Active Hepatic lesion Confirmed Active Obese class II Confirmed Active 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 Fatty liver 1 Confirmed Active 1US Abdomen 11/02/2021 Social History Social History Type Response Smoking Status Former smoker; Tobac co user in household: No entered on: 05/26/13 Sex Patient Care team information Care Team Personnel Name: Adam Villanueva III, MD Position: [facility] Ambulatory (view) Member Role: PCP Address: Address: [address] [place] [id number]- Name: Merlene Weldon NP Position: [facility] Associate Professional Member Role: Primary Care Nurse Address: Address: [address] [place] [address] Trauma [place] [address]- Name: Catalino Michelle RN Position: [facility] RN Member Role: Primary Care Nurse Care Team Related Persons Name: VENESSA BELLA Address: [address] [place] [address] Name: ED BELLA Address: [address] [place] [address]
--- OUTSIDE RECORDS SUMMARY | 2023-06-13 00:05 | XMS_ITS | Continuity of Care Document ---
Author Organization [facility] Adult Address [address] [place] [address]- Care Team Providers Care Health Editor Name Role Phone Rossy Pierre Primary Care Physician Encounter [facility] [place] Date(s): 07/03/22 - 07/10/22 [facility] Adult [address] [place] [address]- Attending Physician: Not on Staff, Attending MD Allergies, Adverse Reactions, Alerts Substance Reaction Severity [...] Medications cimetidine 400 mg oral tablet 1 tablet = 400 mg, By Mouth, 2 times a day, for 30 days, # 60 tablet, 0 Refills, Acute 08/02/22 10:40:00 EDT, 07/03/22 10:40:00 EDT, [id number], Partial fill upon patient request if the prescription is for a schedule II opioid drug., 1... Start Date: 07/03/22 Stop Date: 08/02/22 Status: Ordered Flonase 50 mcg/inh nasal spray 1 sprays, Nares, Both, 2 times a day, # 16 Gm, 4 Refills, Maintenance, 07/03/22 7:50:00 EDT, [place],[facility]/pharmacy #[id number], Partial fill upon patient request if [...] 07/03/22 7:50:00 EDT, Route to Pharmacy Electronically, [facility]/pharmacy #[id number], Partial fill upon patient request if [...] liver 1 Confirmed Active 1US Abdomen 11/02/2021 Vital Signs Most recent to oldest [Reference Range]: 1 2 Height 170 cm (07/03/22 7:53 AM) 170 cm (07/03/22 7:37 AM) Weight 116.8 kg (07/03/22 7:37 AM) Oxygen Saturation [94-100 %] 94 % (07/03/22 7:37 AM) Pulse Rate [55-90 bpm] 91 bpm *H* (07/03/22 7:37 AM) Body Mass Index [18.5-24.99 kg/m2] 40.42 kg/m2 *>HHI* (07/03/22 7:37 AM) Blood Pressure [90-138/55-84 mm Hg] 124/ 83mm Hg (07/03/22 7:53 AM) 126/89mm Hg (07/03/22 7:37 AM) Blood pressure sites Arm, left (07/03/22 7:37 AM) Social History Social History Type Response Smoking Status Former smoker; Tobac co user in household: No entered on: 05/26/13 Sex Note * Christine Serrano MA: VERIFY, PERFORM, SIGN Event Display: Patient Education/Instruction Authored Date: [id number] [facility] *[facility] Keith Siddiqui Clinical Summary Name KATIA BELLA Age 51 Years 1970 PCP Rossy Pierre PCP Visit Date 07/03/2022 07:30:00 Additional Instructions: Scheduled Appointments?? Future Appointments ?No Future Appointments Scheduled Follow-Up Instructions ?? Diagnosis Snoring; Essential (primary) hypertension; Allergic rhinitis, unspecified; Other rheumatoid arthritis with rheumatoid factor of unspecified site; Gastro- esophageal reflux disease without esophagitis;Fatty (change of) liver, not elsewhere classified Medications: Please continue your medications until treatment is completed or stopped by your provider. Discuss any questions related to medications with your provider. New Medications [facility]/pharmacy #[id number], [facility] [place], [place] [id number], [phone] Fluticasone Nasal (Flonase 50 mcg/inh nasal spray) 1 spray(s) Nares, Both twice a day. Refills: 4. Next Dose: Lisinopril (lisinopril 10 mg oral tablet) 1 tab(s) Oral Daily. Refills: 3. Next Dose: Pantoprazole (pantoprazole 20 mg oral delayed release tablet) 1 tab(s) Oral twice a day. Refills: 0. Next Dose: Medications to Continue with No Changes These medications were not printed or sent to your pharmacy Folic Acid Daily. Next Dose: Methotrexate (methotrexate 2.5 mg oral tablet) 1 tab(s) Oral every week. Next Dose: No Longer Take the Following Medications Famotidine (Pepcid 20 mg oral tablet) 1 tab(s) Oral twice a day. Refills: 1. Allergy Info:?? Bactrim; metoprolol Medications Given This Visit Future Orders ?No future orders Vital Signs Height 170 cm Weight 116.8 kg BMI 40.42 kg/m2 Blood Pressure 124 mm Hg/83 mm Hg Temperature Pulse Rate 91 bpm Respiratory Rate 02 Sat Mode of Delivery 94 %/ You can now view a summary of your hospital visit from the comfort of your home through a free online portal called [employer]. [employer] is a website that allows you to securely view your medical information including discharge summary, medications and follow-up visits. ??You can alsosend a secure electronic message to your doctor???s office to request appointments, renew medications or just ask a question. You can enroll at [email or web address] or register during your next office visit. Disclaimer:?? The information provided is of a general nature and is intended to be used in conjunction with the recommendations and advice of your health care practitioner. ??Every effort has been made to ensure that the information provided is accurate and complete at the time it is provided to you however, as your needs change, or, as new ??information becomes available, different or additional instructions may be required. If you have questions, please consult with your primary care provider or pharmacist, as appropriate. ??This information is not intended to serve as substitution for assessment and evaluation by a qualified health care provider. If you do not have a primary care provider, you may find a [facility] provider by calling [facility] [employer] Link at [phone]. For information about the plan of care including goals and instructions for your diagnosis, please see the patient education orders section of this document. Patient Education Materials?? The content of this educational material or handout may have been modified, supplemented, or adapted from its original content and format to support your individualized medical care. Patient Care team information Care Team Personnel Name: Merlene Weldon NP Position: [facility] Associate Professional Member Role: Primary Care Nurse Address: Address: [address] [place] [address] Trauma [place] [address]- Name: Rossy Pierre Position: [facility] PCO Associate Professional Member Role: PCP Address: Address: [address] [place] [address] [place] [address]- Name: Viviana RN, Catalino Position: [facility] RN Member Role: Primary Care Nurse Care Team Related Persons Name: VENESSA BELLA Address: [address] [place] [address] Name: ED BELLA Address: [address] [place] [address]
--- OUTSIDE RECORDS SUMMARY | 2023-06-13 00:05 | XMS_ITS | Continuity of Care Document ---
Author Organization [facility] Adult Address [address] [place] [address]- Care Team Providers Care Oncology Rep Specialist Name Role Phone Rossy Salazar Primary Care Physician Encounter [facility] [place] Date(s): 11/15/22 - 11/22/22 [facility] Adult [address] [place] [address]- Attending Physician: Not on Staff, Attending MD Allergies, Adverse Reactions, Alerts Substance Reaction Severity Status doxycycline Active metoprolol Active Bactrim Active Immunizations Given and [...] CDC Information Sheet given VIS (10/19/13) Medications cephalexin monohydrate 250 mg oral capsule 1 capsule = 250 mg, By Mouth, 4 times a day, for 10 days, # 40 capsule, 0 Refills, Acute 11/25/22 9:24:00 EDT, 11/15/22 9:24:00 EDT, [facility]aps[facility], [id number] Partial fill upon patient request if the prescription is for a schedule II opioid drug.,... Start Date: 11/15/22 Stop Date: 11/25/22 Status: Ordered Flonase 50 mcg/inh nasal spray 1 sprays, Nares, Both, 2 times a day, # 16 Gm, 4 Refills, Maintenance, 07/03/22 7:50:00 EDT, [place],[facility]/pharmacy #[id number], Partial fill upon patient request if the prescription is for a schedule II opioid drug., 1 sprays Nares, Both 2 times a day, 170, c... Start Date: 07/03/22 Status: Ordered Flonase Allergy Relief 50 mcg/inh nasal spray 2 sprays, Nares, Both, Daily, # 15.8 mL, 3 Refills, Maintenance, 11/15/22 7:36:00 EDT, [id number], Partial fill upon patient request if the prescription is for a schedule II opioid drug., 170, cm, 11/15/22 7:12:00 EDT, Height Start Date: 11/15/22 Status: Ordered Folic Acid Daily, 0 Refills, Maintenance, 06/19/22 9:31:00 EDT, Partial fill upon patient request if the prescription is for a schedule II opioid drug. Start Date: 06/19/22 Status: Ordered Humira = 40 mg, Subcutaneous Infusion, 0 Refills, Maintenance, 11/15/22 7:35:00 EDT, Partial fill upon patient request if the prescription is for a schedule II opioid drug. Start Date: 11/15/22 Status: Ordered lisinopril 10 mg oral tablet 10 mg, 1, tablet, By Mouth, Daily, # 90 tablet, Refills 3, Tot. Refills 3, Maintenance, 07/03/22 7:50:00 EDT, Route to Pharmacy Electronically, [facility]/pharmacy #[id number], Partial fill upon patient request if the prescription is for a schedule II opioid drug.... 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 Severe obesity Confirmed Active Fatty liver 1 Confirmed Active 1US Abdomen 11/02/2021 Vital Signs Most recent to oldest [Reference Range]: 1 2 Height 170 cm (11/15/22 7:39 AM) 170 cm (11/15/22 7:12 AM) Weight 120.9 kg (11/15/22 7:12 AM) Oxygen Saturation [94-100 %] 95 % (11/15/22 7:12 AM) Pulse Rate [55-90 bpm] 79 bpm (11/15/22 7:12 AM) Body Mass Index [18.5-24.99 kg/m2] 41.83 kg/m2 *>HHI* (11/15/22 7:12 AM) Blood Pressure [90-138/55-84 mm Hg] 118/ 82mm Hg (11/15/22 7:39 AM) 138/92mm Hg (11/15/22 7:12 AM) Mode of Delivery (Oxygen) Room air (11/15/22 7:12 AM) Blood pressure sites Arm, left (11/15/22 7:12 AM) Social History Social History Type Response Smoking Status Former smoker; Tobac co user in household: No entered on: 05/26/13 Sex Note * Christine Serrano MA: PERFORM, SIGN, VERIFY Event Display: Patient Education/Instruction Authored Date: [id number] [facility] *PREETHI Siddiqui Clinical Summary Name KATIA BELLA Age 52 Years 1970 PCP Rossy Salazar PCP Visit Date 11/15/2022 07:06:00 Patient Instructions Labs: Fasting. Go to??[email or web address] ?? Select?? Sign Up ??on the left side ?? Review Privacy and Terms of Use? Complete all field under??Sign up for an account ?? After completing, select??Enroll Additional Instructions: Scheduled Appointments?? Future Appointments ?No Future Appointments Scheduled Follow-Up Instructions ?? Diagnosis Hyperlipidemia, unspecified; Gastro-esophageal reflux disease without esophagitis; Encounter for general adult medical examination without abnormal findings; Allergic rhinitis, unspecified; Essential(primary) hypertension; Encounter for screening for malignant neoplasm of prostate; Obstructive sleep apnea (adult) (pediatric); Other rheumatoid arthritis with rheumatoid factor of unspecified site;Fatty (change of) liver, not elsewhere classified Medications: Please continue your medications until treatment is completed or stopped by your provider. Discuss any questions related to medications with your provider. Medications to Continue Taking That Have Changed [id number], [address] [place] [phone], [phone] - Fluticasone Nasal (Flonase Allergy Relief 50 mcg/inh nasal spray) 2 spray(s) Nares, Both Daily. Refills: 3. Next Dose: These medications were not printed or sent to your pharmacy - Fluticasone Nasal (Flonase 50 mcg/inh nasal spray) 1 spray(s) Nares, Both twice a day. Refills: 4. Next Dose: Medications to Continue with No Changes These medications were not printed or sent to your pharmacy Adalimumab (Humira) 40 Milligram Subcutaneous Infusion. Next Dose: Folic Acid Daily. Next Dose: Lisinopril (lisinopril 10 mg oral tablet) 1 tab(s) Oral Daily. Refills: 3. Next Dose: No Longer Take the Following Medications Cimetidine (cimetidine 400 mg oral tablet) 1 tab(s) Oral twice a day for 30 Days. Refills: 0. Methotrexate (methotrexate 2.5 mg oral tablet) 1 tab(s) Oral every week. Allergy Info:?? Bactrim; metoprolol Medications Given This Visit Future Orders ?Comprehensive Metabolic Panel? Order Date:11/15/22?- Complete on or after?11/15/22 ?Lipid Panel? Order Date:11/15/22?- Complete on or after?11/15/22 ?CBC w/ Differential? Order Date:11/15/22?- Complete on or after?11/15/22 ?PSA Screen? Order Date:11/15/22?- Complete on or after?11/15/22 ?US RUQ? Order Date:11/15/22?- Complete on or after?11/15/22 Vital Signs Height 170 cm Weight 120.9 kg BMI 41.83 kg/m2 Blood Pressure 118 mm Hg/82 mm Hg Temperature Pulse Rate 79 bpm Respiratory Rate 02 Sat Mode of Delivery 95 %/Room air You can now view a summary of your hospital visit from the comfort of your home through a free online portal called [employer]. [employer] is a website that allows you to securely view your medical information including discharge summary, medications and follow-up visits. ??You can alsosend a secure electronic message to your doctor???s office to request appointments, renew medications or just ask a question. You can enroll at [email or web address] or register during your next office visit. [...] primary care provider, you may find a [facility] provider by calling [employer] at [phone]. [facility], in keeping with [facility] guidance, no longer requires face masks for staff, patientsor visitors in most situations. Similar to time spent indoors at other locations, there is the chance that you were exposed to respiratory viruses during your time with us (such as flu or COVID-19).? If you develop symptoms concerning for a viral respiratory infection, please seek testing (and treatment if indicated) from your medical provider or home test kit. For information about the plan of care [...] Care Team Personnel Name: Rossy Salazar Position: [facility] PCO Associate Professional Member Role: PCP Address: Address: [address] [place] [address]- Name: Merlene Weldon NP Position: [facility] Associate Professional Member Role: Primary Care Nurse Address: Address: [address] [place] [address] Trauma [place] [address]- [place] Name: Catalino Michelle RN Position: [facility] RN Member Role: Primary Care Nurse Care Team Related Persons Name: VENESSA BELLA Address: [address] [place] [address] Name: ED BELLA Address: [address] [place] [address]
--- OUTSIDE RECORDS SUMMARY | 2023-06-13 00:05 | XMS_ITS | Continuity of Care Document ---
Author Organization [facility] ter Address [address] [place] [address]- Care Team Providers Care Scientific Manager Name Role Phone Rossy Salazar Primary Care Physician Encounter [facility] [place](s): 12/23/22 - 12/24/[address] [address]- Encounter Diagnosis Umbilical hernia(Final) - 12/23/22 Discharge Disposition: A-D/C Home Attending Physician: Edgard Amezcua DO Admitting Physician: Edgard Amezcua DO Referring Physician: Not on Staff, Referring MD Allergies, Adverse Reactions, Alerts Substance Reaction [...] CDC Information Sheet given VIS (10/19/13) Medications Flonase 50 mcg/inh nasal spray 1 sprays, Nares, Both, 2 times a day, # 16 Gm, 4 Refills, Maintenance, 07/03/22 7:50:00 EDT, [place],[id number], Partial fill upon patient request if [...] 07/03/22 7:50:00 EDT, Route to Pharmacy Electronically, [id number], Partial fill upon patient request [...] liver 1 Confirmed Active 1US Abdomen 11/02/2021 Results Radiology Reports * Exam Date Time Procedure Performing Provider Status 12/23/22 8:[address] Angio Abdomen and Pelvis Shila Posada nda; Auth (Verified) Notes: (CT Angio Abdomen and Pelvis) Reason For Exam: umbilical abd pain;Other: RESULT: CT Angio Abdomen and Pelvis CT Angio Abdomen and Pelvis INDICATION: Hx of Present Illness: Pt with mid abdominal pain, around belly button. Occasional nausea, no diarrhea. Denies fever. Hx of hernia; Reason: Other:; umbilical abd pain; Clinical Question(s): Other:; mesenteric ischemia, incarcerated hernia; Order Comment: , Other: COMPARISON: None. TECHNIQUE: Axial images were obtained from diaphragm through the pelvis during the intravenous administration of iodinated contrast. 100 cc of Omnipaque 300 was administered intravenously. Delayed (venous) images were also acquired for evaluation of the portal veins. Sagittal and coronal maximum intensity projection (MIP) images were reconstructed and rendered in both arterial and venous phases. Weight-based protocol using automatic tube modulation was used to optimize exposure parameters. RADIATION DOSE PARAMETERS: CTDIvol Body: 23.85 mGy, DLP Body: 2740 mGy*cm. VASCULAR FINDINGS: Abdominal aorta: No aortic aneurysm or dissection. Celiac axis: Patent. Superior mesenteric artery: Patent. Right renal artery: Patent. Left renal artery: Patent. Inferior mesenteric artery: Patent. Right common iliac artery: Patent. Right internal iliac artery: Patent. Right external iliac artery: Patent. Right common femoral artery: Patent. Visualized right superficial and deep femoral arteries: Patent. Left common iliac artery: Patent. Left internal iliac artery: Patent. Left external iliac artery: Patent. Left common femoral artery: Patent. Visualized left superficial and deep femoral arteries: Patent. IVC and hepatic veins: Patent. Portal vein: Patent. Splenic vein: Patent. Superior mesenteric vein: Patent. Inferior mesenteric vein: Patent. Iliac and femoral veins: Patent. 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 Visualized Chest: Lung bases are clear. No pleural effusion. The heart is normal in size. No pericardial effusion. Diaphragm: Normal. Liver: Normal. Gallbladder: No CT evidence of gallbladder pathology. Bile ducts: No biliary ductal dilation. Spleen: Normal. Pancreas: Normal. Adrenal glands: Normal. Kidneys and ureters: Horseshoe type kidney. No evidence of obstruction or acute abnormality. Bladder: Normal. Reproductive organs: Unremarkable. Stomach, small bowel, and large bowel: Normal. Appendix: Normal. Peritoneum and retroperitoneum: No ascites or pneumoperitoneum. No omental or mesenteric lesions. Lymph nodes: No enlarged lymph nodes. Abdominal and pelvic wall: Fat-containing hernia noted in the periumbilical region. Left inguinal fat-containing hernia. Bones: Degenerative disc L5-S1 bulging noted. IMPRESSION: Periumbilical fat containing hernia. This may contain mild inflammatory change which could be related to entrapment. Retyped kidney. No other acute abnormality identified. No evidence of mesenteric ischemia WSN: [id number] Ordering Physician: Edgard Amezcua Dictated By: Cristhian Brooks MD Dictated Date/Time: 12/23/22 9:25 pm Reviewed By: Cristhian Brooks MD Signed By: Crsithian Brooks MD Signed Date/Time: 12/23/22 9:25 pm Transcribed By: ZACH Transcribed Date/Time: 12/23/22 9:21 pm Vital Signs Most recent to oldest [Reference Range]: 1 2 3 Height 170 cm (12/23/22 2:36 PM) 170 cm (12/23/22 11:09 AM) Oxygen Saturation [94-100 %] 100 % (12/24/22 12:04 AM) 97 % (12/23/22 6:51 PM) 97 % (12/23/22 5:33 PM) Pulse Rate [55-90 bpm] 70 bpm (12/24/22 12:04 AM) 81 bpm (12/23/22 6:51 PM) 89 bpm (12/23/22 5:33 PM) Blood Pressure [90-138/55-84 mm Hg] 140/85mm Hg *H* (12/24/22 12:04 AM) 125/91mm Hg (12/23/22 6:51 PM) 149/91mm Hg *H* (12/23/22 5:33 PM) Respiratory Rate [16-30 br/min] 18 br/min (12/24/22 12:04 AM) 18 br/min (12/23/22 6:51 PM) 16 br/min (12/23/22 5:33 PM) Temperature [96.8-100.4 DegF] 98.3 DegF (12/23/22 6:51 PM) 98.3 DegF (12/23/22 5:33 PM) 98.4 DegF (12/23/22 11:09 AM) Mode of Delivery (Oxygen) Room air (12/24/22 12:04 AM) Room air (12/23/22 6:51 PM) Room air (12/23/22 5:33 PM) Blood pressure sites Arm, left (12/24/22 12:04 AM) Arm, left (12/23/22 6:51 PM) Arm, right (12/23/22 5:33 PM) Temperature Route Oral (12/23/22 6:51 PM) Oral (12/23/22 5:33 PM) Oral (12/23/22 11:09 AM) Dry Weight 120 kg (12/23/22 2:36 PM) 120 kg (12/23/22 11:09 AM) Dry Weight Obtained Via Patient/family s tated (12/23/22 11:09 AM) Social History Social History Type Response Smoking Status Former smoker; Tobac co user in household: No entered on: 05/26/13 Sex Consult note * Francisco AGUILAR, Joey P: PERFORM Event Display: Consult Authored Date: [id number] Patient: ??KATIA BELLA ? Age:??52 Years?Sex:??Male?:??1970?? Chief Complaint/Reason for Consult Chief complaint: ? Incarcerated hernia Consulted surgeon: Dr. Theo HENSON History of Present Illness Katia is a??52-year-old male??past medical history rheumatoid arthritis on Humira, atrial fibrillation not on anticoagulation, horseshoe kidney, hypertension, hyperlipidemia, GERD??along with previous??umbilical hernia??repair ([address] [facility]) and right inguinal hernia repair ([address] [facility]) presents to [facility]??with a 2-week history of intermittent abdominal pain.?? Patient had??a current episode of abdominal pain??coincided with??an increase in size of his??periumbilical hernia. ??There was??associated nausea and one episode of vomiting.?? Work-up in the emergency department showed white blood cell count 6.9??lactate 1.0.?? CTA abdomen pelvis??was obtained showing a??periumbilical??fat-containing hernia??with??abdominal wall??defect of approximately 3.4 cm.??Given these findings,??acute care surgery was consulted for possible incarcerated fat- containing hernia.?? On evaluation, patient is in no acute distress sitting comfortably in a chair. ??His accompanies him.?? He is not having any complaints at this time and tells me that the hernia has sincereduced.?? States he has previously seen a??surgeon??at [facility]??about having his known hernia repaired??however states he is not interested in having??the surgeon operate on him. ??Denies fever, chills, chest pain, shortness of breath,??nausea, vomiting.?? Does not take any blood thinners Review of Systems Negative unless otherwise specified in HPI Physical Exam Vitals & Measurements T:??98.3?F?? HR:??70??(Peripheral)?? RR:??18?? BP:??140/85?? SpO2:??100%?? HT:??170??cm?? Constitutional: Alert, in no distress. Mental Status: Oriented to person, place and time. Head:??Normocephalic, atraumatic Respiratory: Normal respiratory rate and effort. ?? Cardiovascular: Regular rate and rhythm. ?? Gastrointestinal: Abdomen soft, non-tender, non-distended. ??No hernia.?? There is a??small??palpable??periumbilical??fascial deficit Skin: Skin is warm and dry Musculoskeletal: No edema. No gross deformities. Bilateral lower extremities soft and compressible with no skin changes. Psychiatric: Normal mood and affect Assessment/Plan Katia is a??52-year-old male??past medical history rheumatoid arthritis on Humira, atrial fibrillation not on anticoagulation, horseshoe kidney, hypertension, hyperlipidemia, GERD??along with previous??umbilical hernia??repair ([address] [facility]) and right inguinal hernia repair ([address] [facility]) presents to [facility] with concern for a incarcerated??fat??containing??periumbilical hernia.?? Acute care surgery was consulted for evaluation.?? At the time of my evaluation,??the hernia had spontaneously reduced and the patient symptoms??resolved.?? States he??is scheduled to meet with a??surgeon with an outside hospital but??does not want??to keep this appointment and is looking for a new surgeon.?? Instructed he can follow-up with acute care surgery outpatient??for??evaluation??and elective??surgery??planning ?? Case discussed with Dr. Theo HENSON Please page acute care surgery with any questions or concerns at [phone] This note was dictated using voice recognition software Problem List/Past Medical History Ongoing Afib Allergic rhinitis Anal fissure Asthma-worsened by beta blockers Itz hypersensitivity pneumonitis Dyspnea-possibly due to beta blockers Fatty liver Former smoker GERD (gastroesophageal reflux disease) Hepatic lesion HTN (hypertension) Hyperlipidemia Interstitial lung disease-due to 2011 LAST (obstructive sleep apnea) Polyarthritis with positive rheumatoid factor Severe obesity Procedure/Surgical History Barium swallow: 11/16/20 Recurrent Inguinal Herna: 07/11/20 Ganglion cyst: 06/05/20 Endoscopy: 12/10/19 Endoscopy: 07/13/12 Endoscopy: 05/03/04 Historical Knee Arthroscopy Lung biopsy sample Home Medications Adalimumab: 40 mg, Subcutaneous Infusion Fluticasone Nasal: 1 sprays, Nares, Both, 2 times a day Fluticasone Nasal: 2 sprays, Nares, Both, Daily Folic Acid: Daily Lisinopril: 10 mg = 1 tablet, By Mouth, Daily Allergies Bactrim doxycycline metoprolol Social History Alcohol Use: Current. Frequency: 1-2 times per year. Type: Beer, Liquor. Electronic Cigarette/Vaping Electronic Cigarette Use: Never. Employment/School Status: Employed. Exercise Self assessment: Good condition. Regular exercise: No. Home/Environment Living situation: Home/Independent. Lives with: Children, Spouse. Nutrition/Health Diet: Regular. Caffeine intake amount: 1 cup coffee Daily. Substance Abuse Use: Never. Tobacco Use: Former smoker. Tobacco user in household: No. Family History Mother: Diabetes mellitus; Hypertension Father: Colonic polyp; Hypertension Sister: Colonic polyp Patient Instructions You were seen at [facility] for abdominal pain and a lump in your bellybutton,??CT imaging showed a??fat-containing hernia without any evidence of bowel??in the hernia. ??After the CT scan reevaluation of your abdomen did not demonstrate any palpable mass near the bellybutton suggesting that the hernia self reduced??between the CT scan and reevaluation.?? A lactic acid was drawn, which is a marker of cellular injury, it was normal suggesting that??there is no??severe injury to the??herniated abdominal fat.?? You were evaluated by surgery here in the emergency department they recommended outpatient follow- up.?? I have placed the??contact information for the surgical office??in your paperwork.?? Please give their office a call within the next 1-2 business days to schedule follow-up.?? Please return to the emergency department if you develop any??severe or unremitting abdominal pain or any changes in your bowel habits such as blood in your stool??or inability to have bowel movements. Lab Results Labs Last 24 Hours BLOOD COUNT & DIFF ? Event Name?? Event Result?? Date/Time?? WBC 6.9 k/mm3 12/23/22 18:44:00 RBC 5.42 m/mm3 12/23/22 18:44:00 Hgb 15 Gm/dL 12/23/22 18:44:00 Hct 45.2 % 12/23/22 18:44:00 MCV 83.4 femtoliters 12/23/22 18:44:00 MCH 27.7 pg 12/23/22 18:44:00 MCHC 33.2 g/dL 12/23/22 18:44:00 Platelet Count 236 k/mm3 12/23/22 18:44:00 MPV 10 femtoliters 12/23/22 18:44:00 Nucleated RBC (Automated) 0 #/100 WBC'S 12/23/22 18:44:00 ? CHEM GENERAL ? Event Name?? Event Result?? Date/Time?? Sodium 139 mmol/L 12/23/22 18:44:00 Chloride 106 mmol/L 12/23/22 18:44:00 Bicarbonate Level 21 mmol/L??Low 12/23/22 18:44:00 Anion Gap 12 12/23/22 18:44:00 Glucose Level 104 mg/dL??High 12/23/22 18:44:00 BUN 14 mg/dL 12/23/22 18:44:00 Creatinine-Blood 0.7 mg/dL 12/23/22 18:44:00 Alkaline Phosphatase 79 units/L 12/23/22 18:44:00 Lipase 21 units/L 12/23/22 18:44:00 AST (SGOT) 14 units/L 12/23/22 18:44:00 ALT (SGPT) 15 units/L 12/23/22 18:44:00 Bilirubin, Total 0.3 mg/dL 12/23/22 18:44:00 ? Note * Jamie Deleon DO W: PERFORM Event Display: Patient Education Leaflets Authored Date: [id number] Hernia (Adult) ?? [id number] Hernia (Adult) A hernia can happen when there is a weakness or defect in the wall of the abdomen or groin.??Intestines or nearby tissues may move from their usual location and push through the weakness in the wall.This can cause a bulge (hernia) you may see or feel. Causes and risk factors?? A hernia may be present at . Or it may be caused by the wear and tear of daily living. Certainthings can make a hernia more likely. These can include: ??? Heavy lifting ??? Straining, whether from lifting, movement, or constipation ??? Chronic cough ??? Injury to the abdominal wall ??? Excessweight ? Past surgery ??? Older age ??? Family history of hernia ?? Symptoms Symptoms of a hernia may come on suddenly. Or they may appear slowly over time. Some common symptoms include: ??? Bulge in the groin area, around the navel, or in the scrotum. The bulge may get bigger when you stand and go away when you lie down. ??? Pain or pressure around the bulge ??? Pain during activities such as lifting, coughing, or sneezing ??? A feeling of weakness or pressure in the groi n ??? Pain or swelling in the scrotum ?? Types of hernias There are different types of hernia. The type you have depends on where it is: ??? Inguinal. This type is in the groin or scrotum. It's more common in men. But women can also getthis hernia. ??? Femoral. This type is in the groin, upper thigh, or labia. It's more common in women. ??? Ventral. This type is in the abdominal wall. ??? Umbilical. This type occurs around the bellybutton (navel). ??? Incisional. This type occurs at the site of a past surgery. The condition of the hernia can help determine how quickly it needs to be treated. ??? Reducible. It goes back in by itself, or it can be pushed back in. ??? Irreducible. It can???t be pushed back in. ??? Incarcerated or strangulated. The intestine is trapped (incarcerated). If this happens, you won???t be able to push the bulge back in. If the incarcerated hernia isn???t treated, it may become strangulated. This means the area loses blood supply and the tissue may .?? This requires emergency surgery. You need treatment right away. In most cases, a hernia will not heal on its own. You may need surgery to repair the defect in the abdominal wall or groin. You???ll be told more about surgery, if needed. If your symptoms are not severe, treatment may sometimes be delayed. In such cases, you will need regular follow-up visits with the provider. You???ll be asked to keep track of your symptoms and to watch for signs of more serious problems. You may also be given guidelines similar to the home care instructions below. ?? Home care To help keep a hernia from getting worse, you may be advised to: ??? Not do any heavy lifting or straining as directed. ??? Take steps to prevent constipation. This includes eating more fiber and drinking more water. This may help reduce straining that can occur when having a bowel movement. Reducing straining may help keep your symptoms from getting worse. ??? Stay at a healthy weight or lose extra weight. This can help reduce strain on abdominal muscles and tissues. ??? Stop smoking. This canhelp prevent coughing that may also strain abdominal muscles and tissues. ?? Follow-up care Follow up with your healthcare provider, or as directed.??If you had imaging tests, they will be reviewed a doctor. You will be told the results and any new findings that may affect your care. ?? When to seek medical advice Call your healthcare provider right away if any of these occur: ??? Hernia hardens, swells, or grows larger ??? Hernia can no longer be pushed back in ??? Pain moves to the lower right abdomen (just below the waistline), or spreads to the back ??? You have new symptoms ?? Call 911 Call 911??if any of these occur: ??? Severe pain, redness, or tenderness in the area near the hernia ??? Pain gets worse quickly and doesn???t get better ??? Inability to have a bowel movement or pass gas ??? Fever of 100.4??F (38??C) or higher, or as directed by your healthcare provider ?? Last Reviewed Date: 2021 ?? 2796-5208 [employer]. All rights reserved. This information is not intended as a substitute for professional medical care. Always follow your healthcare professional's instructions. ?? Patient Care team information Care Team Personnel Name: Rossy Salazar Position: [facility] PCO Associate Professional Member Role: PCP Address: Address: [address] [place] [id number]- [place] Name: Merlene Weldon NP Position: [facility] Associate Professional Member Role: Primary Care Nurse Address: Address: [address] [place] [address] Trauma [place] [address]- [place] Name: Catalino Michelle RN Position: [facility] RN Member Role: Primary Care Nurse Name: Edgard Amezcua DO Position: [facility] Resident Member Role: Admitting Physician Address: Address: [address] [place] [address] [place] [address]- Name: Jamie Deleon DO Position: [facility] Resident Member Role: ED Resident Address: Address: [address] [place] [address] [place] [address]- [place] Name: Ann Marie Martin Position: [facility] ED TA [facility] Member Role: Packing And Final Assembly Supervisor Name: Cecy Hernandez RN Position: [facility] ED RN W/OE and Tasks Member Role: Patient Care Provider Care Team Related Persons Name: VENESSA BELLA Address: home [address] [place] [address] Name: ED BELLA Address: home [address] [place] [address]
--- OUTSIDE RECORDS SUMMARY | 2023-06-13 00:05 | XMS_ITS | Continuity of Care Document ---
Author Organization [facility] Address [address] [place] [address]- Care Team Providers Care Bag Filler Machine Operator Name Role Phone Rossy Salazar Primary Care Physician [place] [facility] [place] - 05/22/[address] [address] Discharge Disposition: A-D/C Home Attending Physician: Megan Farrell MD Admitting Physician: Megan Farrell MD Referring Physician: Megan Farrell MD Allergies, Adverse Reactions, Alerts Substance Reaction Severity Status doxycycline Rash Active metoprolol Rash Active Bactrim Rash Active Immunizations Given and Recorded Vaccine Date [...] CDC Information Sheet given VIS (10/19/13) Medications docusate sodium 100 mg oral tablet 1 tablet = 100 mg, By Mouth, Daily, # 30 tablet, 0 Refills, Maintenance, 05/22/23 11:51:00 EDT, [facility]t, [id number] Partial fill upon patient request if the prescription is for a schedule II opioid drug., 170, cm, 05/05/23 8:25:00 EST, Height,... Start Date: 05/22/23 Stop Date: 06/21/23 Status: Ordered Flonase Allergy Relief 50 mcg/inh [...] opioid drug.... Start Date: 07/03/22 Status: Ordered oxyCODONE 5 mg oral tablet 5 mg, 1, tablet, By Mouth, Every 6 hours, PRN, for [address] days, Cannot drive while on medication, # 10 tablet, Refills 0, Tot. Refills 0, Acute 05/25/23 11:51:00 EDT, as needed for pain, 05/22/23 11:51:00EDT, [facility] Start Date: 05/22/23 Stop Date: 05/25/23 Status: Ordered Oxycodone 5mg Oral Tablet (PACU ONLY) 5 mg, Tablet, By Mouth, Once, in PACU ONLY, PRN for Pain , Moderate, Routine, 05/22/23 10:15:00 EDT Start Date: 05/22/23 Stop Date: 05/22/23 Status: Completed Problem List Condition Confirmation Course Effective Dates [...] to oldest [Reference Range]: 1 2 3 Weight 119.9 kg (05/22/23 8:18 AM) Oxygen Saturation [94-100 %] 95 % (05/22/23 1:00 PM) 96 % (05/22/23 12:45 PM) 94 % (05/22/23 12:30 PM) Pulse Rate [55-90 bpm] 77 bpm (05/22/23 8:18 AM) Blood Pressure [90-138/55-84 mm Hg] 137/96mm Hg (05/22/23 1:00 PM) 113/56mm Hg (05/22/23 12:45 PM) 124/84mm Hg (05/22/23 12:30 PM) Respiratory Rate [16-30 br/min] 18 br/min (05/22/23 2:20 PM) 16 br/min (05/22/23 1:00 PM) 15 br/min *L* (05/22/23 12:45 PM) Temperature [96.8-100.4 DegF] 98.6 DegF (05/22/23 1:00 PM) 98.7 DegF (05/22/23 11:35 AM) 98.2 DegF (05/22/23 8:18 AM) Liters per Minute 3 L/min (05/22/23 11:45 AM) 6 L/min (05/22/23 11:35 AM) Mode of Delivery (Oxygen) Room air (05/22/23 1:00 PM) Nasal cannula (05/22/23 11:45 AM) Simple face mask (05/22/23 11:35 AM) Blood pressure sites Arm, right (05/22/23 11:35 AM) Arm, right (05/22/23 8:18 AM) Temperature Route Temporal (05/22/23 1:00 PM) Temporal (05/22/23 11:35 AM) Temporal (05/22/23 8:18 AM) Weight Obtained Via Standing scale (05/22/23 8:18 AM) Social History Social History Type Response Smoking Status Former smoker; Tobac co user in household: No entered on: 05/26/13 Sex Implantable Device List Procedure Provider Procedure Date Device Type Site Repair Hernia Umbilical Laparoscopic Megan Farrell MD 05/22/23 Unknown Umbilicus Device Identifier Serial Number Lot or Batch Number Manufacturing Date Expiration Date Distinct Identification Code MRI Safety Implantable Status Assigning Authority Unknown Unknown [id number] Unknown 10/28/24 Unknown Unknown Active Unknown Procedure Provider Procedure Date Device Type Site Repair Hernia Inguinal Laparoscopic with Megan Farrell MD 05/22/23 Unknown Groin Left Device Identifier Serial Number Lot or Batch Number Manufacturing Date Expiration Date Distinct Identification Code MRI Safety Implantable Status Assigning Authority Unknown Unknown [id number] Unknown 07/28/26 Unknown Unknown Active Unknown History and physical note * Event Display: History and Physical Hospital Authored Date: * Event Display: History and Physical Hospital Authored Date: Note * Ana Paula Vegas RN: PERFORM Event Display: Discharge/Transfer Note Hospital Authored Date: [id number] Nursing Discharge Note Entered On: 05/22/2023 15:03 EDT Performed On: 05/22/2023 15:02 EDT by Ana Paula Vegas RN Nursing Discharge Note 2 Discharge Time : 05/22/2023 15:01 EDT Discharge Level of Care at Discharge : Home/Chcf/Foster Care Patient Left Unit Via : Wheelchair Patient Accompanied Off Unit with : Significant other, Responsible adult DC Instructions Provided & Signed by Pt : Yes Patient Understands D/C Instructions : Yes Verbalized Understanding of D/C Plan By : Patient, Significant other, Responsible adult Patient Instructions Discharge Signed : Yes Discharge Comments : extra bandage supplies Did Pt have Specialty Bed or Wound Vac : No Paulo Vegas RNin - 05/22/2023 15:02 EDT Caregiver Notification Name of Caregiver : Radha [phone] Caregiver Relationship : Spouse Caregiver Home Phone/Work Phone : Radha [phone] Ana Paula Vegas RN - 05/22/2023 15:03 EDT Patient has a Designated Caregiver : Yes Ana Paula Vegas RN - 05/22/2023 15:02 EDT * Orion ZAMORA, Ludivina: PERFORM Event Display: Patient Education/Instruction Authored Date: Surgery Adult Discharge Instructions [address] [address] Name: KATIA BELLA : 1970?? Visit: 05/22/2023 07:17?? Current Date: 05/22/2023 13:01 ?? Account: [id number]?? Surgery Discharge Instructions We would like to thank you for allowing us to assist you with your healthcare needs. The following includes patient education materials and information regarding your injury/illness. Our entire staffstrives to provide an excellent experience for our patients and their families. PLEASE ENSURE YOU FOLLOW-UP PER THE INSTRUCTIONS BELOW! ?? YOUR OPINION IS IMPORTANT TO US! Please complete the survey you may receive by mail or email. Your feedback will be used to make improvements to the healthcare experiences of our patients and their families. Surveys are administered by [employer] ?? If further treatment with your primary care physician or another doctor is recommended, it is important for you to keep the appointment. Call your primary care physician or return to the Emergency Department immediately if your condition worsens, fails to improve, or new symptoms develop. If you need to find a doctor, you can call [facility] [employer] [facility] Link for a referral at [phone] or toll free at [phone]) or log in to [email or web address].. ?? [facility], in keeping with [facility] guidance, no longer requires face masks for staff, patientsor visitors in most situations. Similiar to time spent indoors at other locations, there is the chance that you were exposed to repiratory viruses during your time with us (such as flu or COVID-19). If you develop symptoms concerning for a viral respiratory infection, please seek testing (and treatment if indicated) from your medical provider or home test kit. ?? You can view and manage your care through the patient portal or by using a health care faye of your choosing. [employer] is a website that allows you to securely view your medical information including your hospital discharge summary, office visit summaries, medications and follow-up visits. You can also request appointments, renew medications, and request access to your medical information using a health care faye of your choosing, or just ask a question. You are entitled to know the individuals who participated in your treatment. This information is available within your medical record and will be provided upon your request. You can enroll at [email or web address] or register d uring your next office visit. You have been discharged from [facility], Patient Care Unit: PANU??. If you have any questions regarding these instructions after you leave, please call us and we will be happy to assist you. [facility] Your Care Team Attending Physician Bud HENSON, Megan North?? Discharging Providers Mony Zhang MD Reason for Admission LEFT INGUINAL HERNIA ANDUMBILICAL HERNIA DS Your Diagnosis Umbilical hernia, incarcerated Inguinal hernia, incarcerated Inguinal hernia, left Primary Care Provider Rossy Salazar? Advance Directive Health Care Proxy on File Yes - Health Care Proxy What to do next Instructions From Your Doctor May shower 2 days after surgery, no heavy lifting for 6 weeks. If bleeding, drainage, or worsening pain, please call our office or go directly to ED. ?? Orders?? voiding, ??05/22/23 11:32:00 EDT?? Instructions from your Care Team You may shower on Friday, 05/23. Remove bandaids before you shower, you do not have to replace them. Scheduled Follow-Up Appointments Friday 8:20 AM EDT ?? With: Porfirio Darby Where: [facility] General Surgery [address] [place] [address] Drive [address] [place] [address]- Status: Pending Friday 7:50 AM EDT ?? With: Rossy Salazar Where: [facility] [address] [place] [address]- Status: Pending Friday 9:00 AM EDT ?? With: Stevenson HENSON, Jeana Ellsworth Where: [place] [address]- Status: Pending You Need to Schedule the Following Appointments Follow Up with??Megan Farrell When:??06/17/2023 08:20 AM EDT Follow Up with??Rossy Wang When:??In 0 days Discharge Medications KATIA BELLA :1970 Visit Date:05/22/2023 Medications: Please continue your medications until treatment is completed or stopped by your provider. You may resume your daily prescription medications. Discuss any questions related to medications with your provider. What How Much When Instructions Next Dose New Docusate (docusate sodium 100 mg oral tablet) 1 tab(s) Oral Daily Duration: 30 Days Pickup at [facility]/pharmacy #[id number] New Oxycodone (oxyCODONE 5 mg oral tablet) 1 tab(s) Oral Every 6 hours as needed for as needed for pain Duration: [address] while on medication ?? Pickup at [facility]/pharmacy #[id number] Unchanged Adalimumab (Humira) 40 Milligram Subcutaneous Infusion Unchanged Fluticasone Nasal (Flonase Allergy Relief 50 mcg/ inh nasal spray) 2 spray(s) Nares, Both Daily Unchanged Folic Acid Daily Unchanged Lisinopril (lisinopril 10 mg oral tablet) 1 tab(s) Oral Daily Pharmacy Information [facility]/pharmacy #[id number]: [address] [place] [address] [phone] Allergies (NKA means No Known Allergies) Bactrim??(Rash) doxycycline??(Rash) metoprolol??(Rash) Education Materials Below is the list of Educational Leaflet Providered with your Discharge Instructions. Valuables and Belongings I fully understand and agree that [facility] accepts no responsibility for all my personal property including clothing, toilet articles, radios, jewelry, dentures, hearing aids, rings, money, or any other property that is in my possession or is brought to me after admission. I understand certain valuables may be placed in a hospital safe for a short period of time. I understand that the hospital is not liable for loss or damage due to accident, fire, or other natural occurrence while said property is in the safe. I accept full responsibility for any personal property that I keep with me, and will not hold the hospital responsible in case of loss or disappearance. I acknowledge that i have been encouraged to send valuables and belongings home. ?? Review of Valuable and Belonging List: With patient, With family Date for Pt to Sign Valuables/Belongings: 05/22/23 08:18:00 ?? Valuables & Belongings ?? Clothes Electronic devices Jewelry Monetary Items Personal devices Miscellaneous Medications (Valuables) Valuables at Bedside Jacket, Pants, Shirt, Shoes, Undergarments ? Glasses ? Valuables Sent Home ? Valuables Sent to Security ? Other Discharge Information ? Pulmonary Rehab Status?? Pulmonary Rehab Discharge Status?? Respiratory Rate:??15 br/min??Low ? Common Emergency Awareness Tips IS IT A STROKE? Act FAST and Check for these signs: FACE Does the face look uneven? ARM Does one arm drift down? SPEECH Does their speech sound strange? TIME Call at any sign of stroke ?? Heart Attack Signs Chest discomfort: Most heart attacks involve discomfort in the center of the chest and lasts more than a few minutes, or goes away and comes back. It can feel like uncomfortable pressure, squeezing, fullness or pain. Discomfort in upper body: Symptoms can include pain or discomfort in one or both arms, back, neck, jaw or stomach. Shortness of breath: With or without discomfort. Other signs: Breaking out in a cold sweat, nausea, or lightheaded. Remember, MINUTES DO MATTER. If you experience any of these heart attack warning signs, call to get immediate medical attention! ?? Smoking can increase your chances of developing chronic health problems and can cause harmful effects to other family members in your house. If you smoke, you are strongly encouraged to quit. Please call [facility] Link at [phone] or 2-938-704Salir.com ([phone]) or log in to [email or web address] for referrals to smoking cessation programs. ?? The National Suicide Prevention Hotline is available 23/09 if you or someone you know needs to find a reason to keep living. By calling 1-533-394-einb (0763) you'll be connected to a skilled, trained counselor at a crisis center in your area. SURGERY DISCHARGE INSTRUCTIONS SIGNATURE PAGE KATIA BELLA Location:[facility] Registration Date and Time:05/22/2023 07:17 EDT Primary Care Physician: Rossy Salazar, Attending Physician: Megan Farrell MD, I HIREN BELLAN, have received the above patient education materials/instructions and have verbalized understanding. If ambulance or transport services are being used I further acknowledge being given a choice of service. ?? If you need to contact me, please call me at this number: . Patient/Manager Transportation Planning Name: Patient/Manager Transportation Planning Signature: Relationship to Patient: Witness Name/Signature: Date: * Ludivina Sears RN: PERFORM, SIGN, VERIFY Event Display: Patient Education Handout Authored Date: * Ludivina Sears RN: PERFORM Event Display: Patient Education Leaflets Authored Date: [id number] Surgery Medical Daystay Surgical Overnight Discharge Instructions ?? 295 Medical Daystay/Surgical Overnight Discharge Instructions ? Since your coordination and judgment may be altered by medication and/or anesthesia, a responsible adult must drive you home from the hospital. ? If you have received medication for pain or sedation while under our care, you should not drive, operate machinery, drink alcohol, or sign any legal documents for 24 hours.?? You should have someone with you at home tonight. ? Remain at home the day of discharge.?? You may be up and about unless otherwise instructed by your physician. ? You may resume your daily prescription medication schedule.?? Any depressant medication should be avoided for 24 hours unless otherwise instructed by your surgeon or anesthesiologist. ? Call your physician for a follow-up appointment.? If you experience unusual or severe pain not relied by your pain medication, excessive bleedingor drainage, persistent nausea and vomiting, excessive swelling or redness, foul odor from incisionsite or fever over 100.6F, you need to call your physician. ? A follow-up phone call by a nurse will be made the day after your procedure.?? If you have stayed with us over night, you will not be receiving a follow-up phone call. ? Nausea and vomiting are a common side effect of prescription pain medication.?? We recommend that pills are not taken on an empty stomach.?? While taking any prescription pain medication you should not drive or drink alcohol. ? * Ludivina Sears RN: PERFORM Event Display: Patient Education Leaflets Authored Date: [id number] Surgery Hernia Repair ?? 286 Discharge Instructions Hernia Repair ?? Activity: No heavy lifting or vigorous activity for 3 ??? 4 weeks after surgery ?? Diet: Continue your usual diet ?? Further Instructions: ?? Keep the incision clean and dry for 48 hours. The gauze dressing may be removed 2 days after surgery. Leave the steri-strips (small pieces of tape directly on the skin) in place until they fall off by themselves. You may shower on the 3 rd ??day after surgery. ?? A small amount of blood on the dressing is common. For excessive bleeding, please call the surgeon or go to the Emergency Room at [facility]. ?? The numbing medicine will wear off. Please fill your prescription for pain medicine on your way home. The pain medicine may cause constipation, and you should use a stool softener and/or laxative as needed. ?? Please call the surgical office to schedule a follow-up appointment within 2- 3 weeks. Ice may be applied to the surgical site several times during the first day: apply through a cloth for 15 minutes on and 30 ??? 45 minutes off. Be careful not to freeze the skin. ?? IF YOU HAVE ANY QUESTIONS OR PROBLEMS, PLEASE CALL THE SURGICAL OFFICE ? Patient Care team information Care Team Personnel Name: Rossy Salazar Position: S PCO Associate Professional Member Role: PCP Address: Address: [address] [place] [address]- [place] Name: Merlene Weldon NP Position: [facility] Associate Professional Member Role: Primary Care Nurse Address: Address: [address] [place] [address] Trauma [place] [address]- [place] Name: Catalino Michelle RN Position: [facility] RN Member Role: Primary Care Nurse Care Team Related Persons Name: VENESSA BELLA Address: home [address] [place] [address] Name: ED BELLA Address: [address] [place] [address]
--- OUTSIDE RECORDS SUMMARY | 2023-06-13 00:05 | XMS_ITS | Continuity of Care Document ---
Author Organization [facility] Address [address] [place] [address] [address] [place] [address]- Care Team Providers Care Virtual Office Assistant Name Role Phone Rossy Salazar Primary Care Physician Encounter [facility] [place] Date(s): 12/24/22 - 02/06/[address] [place] [address]- Attending Physician: Emanuel ROMERO MD, Sadiq T Allergies, Adverse Reactions, Alerts Substance Reaction Severity Status doxycycline Rash Active Bactrim Rash Active metoprolol Rash Active Immunizations Given and Recorded Vaccine [...] Information Sheet given VIS (10/19/13) Medications Flonase Allergy Relief 50 mcg/inh nasal spray 2 sprays, Nares, Both, Daily, # 15.8 mL, 3 Refills, Maintenance, 11/15/22 7:36:00 EDT, [id number] Partial fill upon patient request if the [...] 07/03/22 7:50:00 EDT, Route to Pharmacy Electronically, [facility]/pharmacy #[id number], Partial fill upon patient request if the [...] Care Team Personnel Name: Rossy Salazar Position: [facility] PCO Associate Professional Member Role: PCP Address: Address: [address] [place] [address]- [place] Name: Merlene Weldon NP Position: S Associate Professional Member Role: Primary Care Nurse Address: Address: [address] [place] [address] Trauma [place] [address]- [place] Name: Catalino Michelle RN Position: [facility] RN Member Role: Primary Care Nurse Care Team Related Persons Name: VENESSA BELLA Address: home [address] [place] [address] Name: ED BELLA Address: [address] [place] [address]
--- OUTSIDE RECORDS SUMMARY | 2023-06-13 00:05 | XMS_ITS | Continuity of Care Document ---
Author Organization [facility] Address [address] [place] [address] [address] [place] [address]- Care Team Providers Care Pound Attendant Name Role Phone Rossy Salazar Primary Care Physician Encounter [facility] Date(s): 12/31/22 - 01/07/23 [facility] [address] [place] [address]- Attending Physician: Bobby Chavarria MD Referring Physician: Not on Staff, Referring MD [...] Gm, 4 Refills, Maintenance, 07/03/22 7:50:00 EDT, [id number], Partial fill upon patient request if [...] 2011 Confirmed Active Hepatic lesion Confirmed Active ALST (obstructive sleep apnea) Confirmed Active 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 Severe obesity Confirmed Active Fatty liver 1 Confirmed Active 1US Abdomen 11/02/2021 Vital Signs Most recent to oldest [Reference Range]: 1 Height 170 cm (12/31/22 9:49 AM) Weight 122.3 kg (12/31/22 9:49 AM) Pulse Rate [55-90 bpm] 81 bpm (12/31/22 9:49 AM) Body Mass Index [18.5-24.99 kg/m2] 42.32 kg/m2 *>HHI* (12/31/22 9:49 AM) Blood Pressure [90-138/55-84 mm Hg] 169/ 99mm Hg *H* (12/31/22 9:49 AM) Temperature [96.8-100.4 DegF] 97.5 DegF (12/31/22 9:49 AM) Blood pressure sites Arm, left (12/31/22 9:49 AM) Temperature Route Temporal (12/31/22 9:49 AM) Weight Obtained Via Standing scale (12/31/22 9:49 AM) Social History Social History Type Response Smoking Status Former smoker; Tobac co user in household: No entered on: 05/26/13 Sex Patient Care team information Care Team Personnel Name: Rossy Salazar Position: [facility] PCO Associate Professional Member Role: PCP Address: Address: [address] [place] [address]- Name: Merlene Weldon NP Position: [facility] Associate Professional Member Role: Primary Care Nurse Address: Address: [address] [place] [address] Trauma [place] [address]- [place] Name: Catalino Michelle RN Position: [facility] RN Member Role: Primary Care Nurse Care Team Related Persons Name: VENESSA BELLA Address: home [address] [place] [address] Name: ED BELLA Address: [address] [place] [address]
--- OUTSIDE RECORDS SUMMARY | 2023-06-13 00:05 | XMS_ITS | Continuity of Care Document ---
Author Organization [facility] Address Unknown Care Team Providers Care Electrical Technician Name Role Phone Rich KELLY MD, Adam Lopez Primary Care Physician Encounter [facility] Date(s): 07/04/21 - 08/03/21 [facility] Allergies, Adverse Reactions, Alerts Substance Reaction Severity Status metoprolol Active Bactrim Active Immunizations Given and Recorded Vaccine Date Status Refusal Reason influenza virus vaccine, inactivated 1 11/17/13 Gi joo pneumococcal 23-valent vaccine 12/26/11 Given 1Admin Note: CDC Information Sheet given VIS [...] Date: 01/27/19 Status: Ordered Problem List Condition Effective Dates Status Health Status Inform ant Anal fissure(Confirmed) Active Asthma-worsened by beta blockers(Confirmed) Active Dyspnea-possibly due to beta blockers(Confirmed) Active Interstitial lung disease-du e to 2011(Confirmed) Active Obese class II(Confirmed) Active Social History Social History Type Response Smoking Status Former smoker; Tobac co user in household: No entered on: 05/26/13 Sex
--- OUTSIDE RECORDS SUMMARY | 2023-06-13 00:05 | XMS_ITS | Continuity of Care Document ---
Author Organization [facility] Address [address] [place] [address] [address] [place] [address]- Care Team Providers Care Program Assistant Name Role Phone Rossy Salazar Primary Care Physician Encounter [facility] Date(s): 01/03/23 - 02/02/[address] [place] [address]- Allergies, Adverse Reactions, Alerts Substance Reaction Severity [...] 07/03/22 7:50:00 EDT, Route to Pharmacy Electronically, [facility]/pharmacy #[id number], Partial fill upon patient request if the [...] Care Team Personnel Name: Rossy Salazar Position: [facility] PCO Associate Professional Member Role: PCP Address: Address: [address] [place] [address] [place] [address]- [place] Name: Merlene Weldon NP Position: S Associate Professional Member Role: Primary Care Nurse Address: Address: [address] [place] [address] Trauma [place] [address]- [place] Name: Catalino Michelle RN Position: S RN Member Role: Primary Care Nurse Care Team Related Persons Name: SAJISTEFANIRlYONATANAndrzejKOSTAVENESSA Address: home [address] [place] [address] Name: ED BELLA Address: home [address] [place] [address]
--- OUTSIDE RECORDS SUMMARY | 2023-06-13 00:05 | XMS_ITS | Continuity of Care Document ---
Author Organization [facility] Address Unknown Care Team Providers Care Business Analyst Project Manager Name Role Phone Rich KELLY MD, Adam Lopez Primary Care Physician [phone] [place] [facility] [place] 07/16/21 - 07/23/21 [facility] Encounter Diagnosis Interstitial lung disease-due to birds 2011(Discharge Diagnosis) - 07/16/21 Anal fissure(Discharge Diagnosis) - 07/16/21 Attending Physician: Mahsa HENSON, Asmita Walters Referring Physician: Jasmina HENSON, Reginald B Allergies, Adverse Reactions, Alerts Substance Reaction Severity [...] to 2011(Confirmed) Active Obese class II(Confirmed) Active Diagnosis Diagnosis Type Effective Dates Health Status Clinical Service Informant Interstitial lung disease-due to 2011 Discharge Diagnosis 07/16/21 Anal fissure Discharge Diagnosis 07/16/21 Vital Signs Most recent to oldest [Reference Range]: 1 Height 170 cm (07/16/21 9:31 AM) Weight 113.1 kg (07/16/21 9:31 AM) Pulse Rate [55-90 bpm] 89 bpm (07/16/21 9:31 AM) Body Mass Index [18.5-24.99] 39.13 *>HHI* (07/16/21 9:31 AM) Blood Pressure [90-138/55-84 mm Hg] 147/ 84mm Hg *H* (07/16/21 9:31 AM) Temperature [96.8-100.4 DegF] 99.2 DegF (07/16/21 9:31 AM) Blood pressure sites Arm, right (07/16/21 9:31 AM) Temperature Route Temporal (07/16/21 9:31 AM) Social History Social History Type Response Smoking Status Former smoker; Tobac co user in household: No entered on: 05/26/13 Sex
--- OUTSIDE RECORDS SUMMARY | 2023-06-13 00:05 | XMS_ITS | Continuity of Care Document ---
Author Organization [facility] Address [address] [place] [address]- Care Team Providers Care Licensed Reactor Operator Name Role Phone Rossy Salazar Primary Care Physician Encounter [facility] Date(s): 05/05/23 - 06/04/23 [facility] [address] [place] [address] Attending Physician: Deepa Agee Admitting Physician: AdmtrDeepa Referring Physician: Admtr, Ar8 Allergies, Adverse Reactions, Alerts Substance Reaction Severity [...] Refills, Maintenance, 05/22/23 11:51:00 EDT, [id number], Partial fill upon patient request if the [...] 07/03/22 7:50:00 EDT, Route to Pharmacy Electronically, [facility]/pharmacy #[id number], Partial fill upon patient request [...] Safety Implantable Status Assigning Authority Unknown Unknown [id number] Unknown 10/28/24 Unknown Unknown Active Unknown Procedure Provider Procedure Date Device Type Site Repair Hernia Inguinal Laparoscopic with Megan Farrell MD 05/22/23 Unknown Groin Left Device Identifier Serial Number Lot or Batch Number Manufacturing Date Expiration Date Distinct Identification Code MRI Safety Implantable Status Assigning Authority Unknown Unknown [id number] 1 Unknown 07/28/26 Unknown Unknown Active Unknown Patient Care team information Care Team Personnel Name: Rossy Salazar Position: [facility] PCO Associate Professional Member Role: PCP Address: Address: [address] [place] [address]- Name: Merlene Weldon NP Position: [facility] Associate Professional Member Role: Primary Care Nurse Address: Address: [address] [place] [address] Trauma and [place] [address]- Name: Catalino Michelle RN Position: [facility] RN Member Role: Primary Care Nurse Care Team Related Persons Name: VENESSA BELLA Address: home [address] [place] [address] Name: ED BELLA Address: [address] [place] [address]
--- OUTSIDE RECORDS SUMMARY | 2023-06-13 00:05 | XMS_ITS | Continuity of Care Document ---
Author Organization [facility] Address [address] [place] [address]- Care Team Providers Care Government Professor Name Role Phone Rossy Salazar Primary Care Physician Encounter [facility] [place] Date(s): 06/23/22 - 07/23/[address] [address] Allergies, Adverse Reactions, Alerts Substance Reaction Severity [...] Gm, 4 Refills, Maintenance, 07/03/22 7:50:00 EDT, [place],[facility]/pharmacy #[id number], Partial fill upon patient [...] 07/03/22 7:50:00 EDT, Route to Pharmacy Electronically, [facility]/pharmacy #[id number], Partial fill upon patient [...] co user in household: No entered on: 3/26/14 Sex Patient Care team information Care Team Personnel Name: Rossy Salazar Position: [facility] PCO Associate Professional Member Role: PCP Address: Address: [address] [place] [address]- [place] Name: Merlene Weldon NP Position: [facility] Associate Professional Member Role: Primary Care Nurse Address: Address: [address] [place] [address] Trauma and Acute [place] [address]- [place] Name: Catalino Michelle RN Position: [facility] RN Member Role: Primary Care Nurse Care Team Related Persons Name: VENESSA BELLA Address: home [address] [place] [address] Name: ED BELLA Address: [address] [place] [address]
--- OUTSIDE RECORDS SUMMARY | 2023-06-13 00:05 | XMS_ITS | Continuity of Care Document ---
Author Organization [facility] Address [address] [place] [address] [address] [place] [address]- Care Team Providers Care Hot Dip Plating Supervisor Name Role Phone Rossy Salazar Primary Care Physician Encounter [facility] [place] Date(s): 03/31/23 - 04/30/[address] [place] [address]- Allergies, Adverse Reactions, Alerts Substance Reaction Severity [...] Clark rded influenza virus vaccine, inactivated 11/18/11 Clakr rded pneumococcal 23-valent vaccine 12/26/11 Given tetanus-diphtheria [...] 07/03/22 7:50:00 EDT, Route to Pharmacy Electronically, [facility]/pharmacy #[id number], Partial fill upon patient request if the [...] Care Team Personnel Name: Rossy Salazar Position: [facility] PCO Associate Professional Member Role: PCP Address: Address: [address] [place] [address] [place] [address]- [place] Name: Merlene Weldon NP Position: S Associate Professional Member Role: Primary Care Nurse Address: Address: [address] [place] [address] Trauma [place] [address]- [place] Name: Catalino Michelle RN Position: S RN Member Role: Primary Care Nurse Care Team Related Persons Name: SAJISTEFANIRlYONATANAndrzejKOSTAVENESSA Address: home [address] [place] [address] Name: ED BELLA Address: [address] [place] [address]
--- OUTSIDE RECORDS SUMMARY | 2023-06-13 00:05 | XMS_ITS | Continuity of Care Document ---
Author Organization [facility] Address [address] [place] [address]- Care Team Providers Care Lumber Cutter Name Role Phone Rich KELLY MD, Adam Lopez Primary Care Physician [phone] [place] [facility] [place](s[place] 03/25/20 - 03/25/[address] [address]- Encounter Diagnosis Chest pain(Final) - 03/25/20 Discharge Disposition: A-D/C Home Attending Physician: Ruby Stover MD Admitting Physician: Ruby Stover MD Referring Physician: Not on Staff, Referring [...] Effective Dates Status Health Status Inform ant Asthma-worsened by beta blockers(Confirmed) Active Dyspnea-possibly due to beta blockers(Confirmed) Active Interstitial lung disease-du e to 2011(Confirmed) Active Results Radiology Reports * Exam Date Time Procedure Performing Provider Status 03/25/20 4:47 PM Chest Portable Martha Bernal; Jean (Verified) Notes: (Chest Portable) Reason For Exam: Chest Pain;Other: RESULT: Chest Portable Chest Portable Hx of Present Illness: chest tightness on and off x with nausea; Reason: Other:; Chest Pain; Clinical Question(s): Other: COMPARISON: 02/26/2019 FINDINGS: LINES AND TUBES: None. LUNGS AND PLEURA: A linear scar in the right mid zone is unchanged. Lungs are otherwise clear.. Normal pulmonary vascularity. No pleural effusion. No pneumothorax. HEART, MEDIASTINUM AND ROBERTO: Heart is normal in size. Normal upper mediastinal and hilar contour. BONES AND SOFT TISSUES: No acute abnormality. IMPRESSION: No acute abnormality. WSN: [id number] Ordering Physician: Vivien Richmond Dictated By: Sierra Navarrete MD Dictated Date/Time: 03/25/20 4:53 pm Reviewed By: Sierra Navarrete MD Signed By: Sierra Navarrete MD Signed Date/Time: 03/25/20 4:53 pm Transcribed By: ZACH Transcribed Date/Time: 03/25/20 4:52 pm Vital Signs Most recent to oldest [Reference Range]: 1 2 3 Oxygen Saturation [94-100 %] 100 % (03/25/20 8:17 PM) 100 % (03/25/20 6:16 PM) 100 % (03/25/20 4:23 PM) Pulse Rate [55-90 bpm] 71 bpm (03/25/20 6:16 PM) 85 bpm (03/25/20 4:23 PM) 101 bpm *H* (03/25/20 3:43 PM) Blood Pressure [90-138/55-84 mm Hg] 148/98mm Hg *H* (03/25/20 8:17 PM) 125/78mm Hg (03/25/20 6:16 PM) 138/88mm Hg (03/25/20 4:23 PM) Respiratory Rate [16-30 br/min] 18 br/min (03/25/20 8:17 PM) 20 br/min (03/25/20 6:16 PM) 18 br/min (03/25/20 4:23 PM) Temperature [96.8-100.4 DegF] 98.4 DegF (03/25/20 8:17 PM) 98.5 DegF (03/25/20 3:43 PM) Mode of Delivery (Oxygen) Room air (03/25/20 8:17 PM) Room air (03/25/20 6:16 PM) Room air (03/25/20 4:23 PM) Blood pressure sites Arm, left (03/25/20 3:43 PM) Temperature Route Oral (03/25/20 3:43 PM) Social History Social History Type Response Smoking Status Former smoker; Tobac co user in household: No entered on: 05/26/13 Sex
--- OUTSIDE RECORDS SUMMARY | 2023-06-13 00:05 | XMS_ITS | Continuity of Care Document ---
Author Organization [facility] Address [address] [place] [address]- Care Team Providers Care Food Operations Manager Name Role Phone Rossy Pierre Primary Care Physician [place] [facility] [place]/20[place]22 - 07/20/22 [facility] [address] [place] [address]- Allergies, Adverse Reactions, Alerts Substance Reaction Severity [...] 10:40:00 EDT, 07/03/22 10:40:00 EDT, [id number], Partial fill upon patient request if the prescription is for a schedule II opioid drug., 1... Start Date: 07/03/22 Stop Date: 08/02/22 Status: Ordered Flonase 50 mcg/inh nasal spray 1 sprays, Nares, Both, 2 times a day, # 16 Gm, 4 Refills, Maintenance, 07/03/22 7:50:00 EDT, [place],[facility]/pharmacy #[id number], Partial fill upon [...] 07/03/22 7:50:00 EDT, Route to Pharmacy Electronically, [facility]/pharmacy #[id number], Partial fill upon [...] beta blockers Confirmed Active Afib Confirmed Active Tiz hypersensitivity pneumonitis Confirmed Active Dyspnea-possibly due to [...] Team Personnel Name: Merlene Weldon NP Position: [facility] Associate Professional Member Role: Primary Care Nurse Address: Address: [address] [place] [address] Trauma [place] [address]- [place] Name: Rossy Pierre Position: [facility] PCO Associate Professional Member Role: PCP Address: Address: [address] [place] [address]- Name: Catalino Michelle RN Position: [facility] RN Member Role: Primary Care Nurse Care Team Related Persons Name: VENESSA BELLA Address: home [address] [place] [address] Name: ED BELLA Address: [address] [place] [address]
--- OUTSIDE RECORDS SUMMARY | 2023-06-13 00:05 | XMS_ITS | Continuity of Care Document ---
Author Organization [facility] Address [address] [place] [address]- Care Team Providers Care Wooden Fence Erector Name Role Phone Rossy Salazar Primary Care Physician Encounter [facility] Date(s): 08/13/22 - 03/27/23 [facility] [address] [place] [address]- Attending Physician: Christian Hughes MD Referring Physician: Rossy Salazar Allergies, Adverse Reactions, Alerts Substance Reaction Severity [...] 7:50:00 EDT, Route to Pharmacy Electronically, [facility]/pharmacy #[id number], Partial fill upon patient request if the [...] Care Team Personnel Name: Rossy Salazar Position: [facility] PCO Associate Professional Member Role: PCP Address: Address: [address] [place] [address]- [place] Name: Merlene Weldon NP Position: [facility] Associate Professional Member Role: Primary Care Nurse Address: Address: [address] [place] [address] Trauma [place] [address]- [place] Name: Catalino Michelle RN Position: [facility] RN Member Role: Primary Care Nurse Care Team Related Persons Name: VENESSA BELLA Address: home [address] [place] [address] Name: ED BELLA Address: [address] [place] [address]
--- OUTSIDE RECORDS SUMMARY | 2023-06-13 00:06 | XMS_ITS | Continuity of Care Document ---
Author Organization [facility] Address [address] [place] [address]- Care Team Providers Care Application Penetration Tester Name Role Phone Awais Jack MD Primary Care Physician Encounter [facility] Date(s): 02/26/19 - 02/26/[address] [address]- [facility] Encounter Diagnosis Chest discomfort(Final) - 02/26/19 Discharge Disposition: A-D/C Home Attending Physician: Panda Coffey MD Admitting Physician: Panda Coffey MD Referring Physician: Not on Staff, Referring [...] Exam Date Time Procedure Performing Provider Status 02/26/19 5:11 PM Chest 2 Views Frontal and Lat Guscott , Sophia; Auth (Verified) Notes: (Chest 2 Views Frontal and Lat) Reason For Exam: Angina RESULT: Chest 2 Views Frontal and Lat Chest 2 Views Frontal and Lat INDICATION: Angina and nausea COMPARISON: Multiple priors most recent 01/27/2019. FINDINGS: LINES AND TUBES: None. LUNGS AND PLEURA: Clear lungs. Normal pulmonary vascularity. No pleural effusion. No pneumothorax. HEART, MEDIASTINUM AND ROBERTO: Heart is normal in size. Normal mediastinal and hilar contour. BONES AND SOFT TISSUES: No acute abnormality. IMPRESSION: No acute abnormality. WSN: [id number] Dictated By: Stanley Pascual MD Dictated Date/Time: 02/26/19 5:20 pm Reviewed By: Stanley Pascual MD Signed By: Stalney Pascual MD Signed Date/Time: 02/26/19 5:20 pm Transcribed By: ZACH Transcribed Date/Time: 02/26/19 5:19 pm Vital Signs Most recent to oldest [Reference Range]: 1 2 3 Oxygen Saturation [94-100 %] 96 % (02/26/19 6:56 PM) 98 % (02/26/19 5:41 PM) 100 % (02/26/19 11:30 AM) Pulse Rate [55-90 bpm] 86 bpm (02/26/19 6:56 PM) 95 bpm *H* (02/26/19 5:41 PM) 100 bpm *H* (02/26/19 11:30 AM) Blood Pressure [90-138/55-84 mm Hg] 131/79mm Hg (02/26/19 6:56 PM) 122/81mm Hg (02/26/19 5:41 PM) 141/92mm Hg *H* (02/26/19 11:30 AM) Respiratory Rate [16-30 br/min] 16 br/min (02/26/19 6:56 PM) 16 br/min (02/26/19 5:41 PM) 18 br/min (02/26/19 11:30 AM) Temperature [96.8-100.4 DegF] 97.9 DegF (02/26/19 6:56 PM) 98.3 DegF (02/26/19 11:30 AM) Mode of Delivery (Oxygen) Room air (02/26/19 6:56 PM) Room air (02/26/19 5:41 PM) Room air (02/26/19 11:30 AM) Blood pressure sites Arm, left (02/26/19 5:41 PM) Arm, right (02/26/19 11:30 AM) Temperature Route Oral (02/26/19 6:56 PM) Oral (02/26/19 11:30 AM) Social History Social History Type Response Smoking Status Former smoker; Tobac co user in household: No entered on: 05/26/13 Sex
--- OUTSIDE RECORDS SUMMARY | 2023-06-13 00:06 | XMS_ITS | Continuity of Care Document ---
Author Organization [facility] Address Unknown Care Team Providers Care Wire Web Worker Name Role Phone Rich KELLY MD, Adam Lopez Primary Care Physician Encounter [facility] Date(s): 07/09/21 - 08/08/21 [facility] Allergies, Adverse Reactions, Alerts [...]
--- OUTSIDE RECORDS SUMMARY | 2023-06-13 00:06 | XMS_ITS | Continuity of Care Document ---
Author Organization [facility] Address [address] [place] [address]- Care Team Providers Care Utility Arborist Name Role Phone Rossy Salazar Primary Care Physician Encounter [facility] [id number] Date(s): 05/05/23 - 05/12/23 [facility] [address] [place] [address] Attending Physician: Not on Staff, Attending MD Referring Physician: Megan Farrell MD Allergies, [...] mL, 3 Refills, Maintenance, 11/15/22 7:36:00 EDT, [facility]/pharmacy#[id number], Partial fill upon patient request if the [...] 07/03/22 7:50:00 EDT, Route to Pharmacy Electronically, [facility]/pharmacy #[id number], Partial fill upon patient request [...] oldest [Reference Range]: 1 Height 170 cm (05/05/23 8:25 AM) Weight 121.1 kg (05/05/23 8:25 AM) Oxygen Saturation [94-100 %] 100 % (05/05/23 8:25 AM) Pulse Rate [55-90 bpm] 80 bpm (05/05/23 8:25 AM) Body Mass Index [18.5-24.99 kg/m2] 41.9 kg/m2 *>HHI* (05/05/23 8:25 AM) Blood Pressure [90-138/55-84 mm Hg] 144/ 84mm Hg *H* (05/05/23 8:25 AM) Respiratory Rate [16-30 br/min] 18 br/mi n (05/05/23 8:25 AM) Blood pressure sites Arm, left (05/05/23 8:25 AM) Weight Obtained Via Standing scale (05/05/23 8:25 AM) Social History Social History Type Response Smoking Status Former smoker; Tobac co user in household: No entered on: 05/26/13 Sex EKG study * Event Display: ECG 12-Lead Authored Date: Please click on pdf link to open report * Event Display: ECG 12-Lead Authored Date: Ventricular Rate: 77 BPM Atrial Rate: 77 BPM P-R Interval: 152 ms QRS Duration: 86 ms Q-T Interval: 380 ms QTC Calculation(Bazett): 430 ms P [place]: 55 degrees R [place]: -28 degrees T [place]: 15 degrees Normal sinus rhythm Normal ECG When compared with ECG of 25-MAR-2020 19:41, No significant change was found Confirmed by TIM MARCOS ([id number]) on 05/05/2023 10:18:00 AM [place]: TIM MARCOS Note * Talita Livingston: PERFORM, SIGN, VERIFY Event Display: Patient Education/Instruction Authored Date: [id number] [facility] *[facility] Preop Clinical Summary Name KATIA BELLA Age 52 Years 1970 PCP Rossy Salazar PCP Visit Date 05/05/2023 08:18:00 Patient Instructions Today, you were seen by Talita Thomas PAC. If you have any questions, you can reach??her at [phone] between 8.00am to 4.00pm. Thank you for??coming to your visit today with the preoperative??medical evaluation clinic.?? We wish you a fast recovery??from your surgery.? Your medication instructions are summarized below.?? If??you??are prescribed any new??medications, develop any any new medical problems, or??are hospitalized for any reason prior to your surgery; please??contact your us or your surgeon's office immediately.? Please stop all pzsr-fjp-[id number] medications including ibuprofen (Advil, Motrin), naproxen (Aleve),??fish oil, multivitamins, turmeric and any herbal drugs 10 days prior to your procedure as these could increase your risk of bleeding complications.? If you require something for pain or a headache, it is safe to use acetaminophen (Tylenol) or any opiates prescribed to you. ??Examples of opiates include oxycodone, hydrocodone, and tramadol. Be aware that with surgery and narcotic use??there may be an increased risk of post operative constipation.?? To help with this increase your fiber intake, fluid intake, and??increase activity as soon as possible.?? You may also consider over the counter agents such as Colace, Dulcolax, Senna and/or Miralax. Humira:?Hold??2??weeks??prior??to surgery.?? Skip??your dose??on the??9th. The morning of surgery, take the following medications with a sip of water:?? NONE Thank you, Talita Thomas, PAC Additional Instructions: Scheduled Appointments?? Future Appointments ?[facility]??Inpt??OR ?Phone:??--?Fax:??-- ?Appt. Date:??05/22/2023?9:00 AM ?Scheduled Provider:??Megan Farrell MD ?*[facility] [address] ?[place],??[place],??[address] ?Phone:??--?Fax:??-- ?Appt. Date:??06/10/2023?10:00 AM ?Scheduled Provider:??Ralf WHITMAN, Porfirio Ching ?*[facility] ?[address]??[place],??[place],??[address] ?Phone:??--?Fax:??-- ?Appt. Date:??06/20/2023?7:50 AM ?Scheduled Provider:??Felipe WHITMAN, Rossy ?*[facility] ?[address] ?[place],??[place],??[address] ?Phone:??--?Fax:??-- ?Appt. Date:??07/29/2023?9:00 AM ?Scheduled Provider:??Jeana Gamino MD Follow-Up Instructions ?? Allergy Info:?? Bactrim; metoprolol; doxycycline Medications Given This Visit Vital Signs Height 170 cm Weight 121.1 kg BMI 41.9 kg/m2 Blood Pressure 144 mm Hg/84 mm Hg Temperature Pulse Rate 80 bpm Respiratory Rate 18 br/min 02 Sat Mode of Delivery 100 %/ You can now view a summary of your hospital visit from the comfort of your home through a free online portal called [employer]. [employer] is a website that allows you to securely view your medical information including discharge summary, medications and follow-up visits. ??You can alsosend a secure electronic message to your doctor???s office to request appointments, renew medications or just ask a question. You can enroll at [email or web address] or register during your next office visit. [...] primary care provider, you may find a [facility] provider by calling [facility] [employer] Link at [phone]. [facility], in keeping with [facility] guidance, no longer requires face masks for [...] Care Team Personnel Name: Rossy Salazar Position: [facility] PCO Associate Professional Member Role: PCP Address: Address: [address] [place] [address]- [place] Name: Merlene Weldon NP Position: [facility] Associate Professional Member Role: Primary Care Nurse Address: Address: [address] [place] [address] Trauma [place] [address]- Name: Catalino Michelle RN Position: [facility] RN Member Role: Primary Care Nurse Care Team Related Persons Name: VENESSA BELLA Address: home [address] [place] [address] Name: ED BELLA Address: [address] [place] [address]
--- OUTSIDE RECORDS SUMMARY | 2023-06-13 00:06 | XMS_ITS | Continuity of Care Document ---
Author Organization [facility] Address [address] [place] [address] [address] [place] [address]- Care Team Providers Care Tax Expert Name Role Phone Rossy Salazar Primary Care Physician Encounter [facility] Date(s): 01/28/23 - 02/04/[address] [place] [address]- Attending Physician: Bud HENSON, Megan North Referring Physician: Dc Szymanski MD Allergies, Adverse Reactions, Alerts Substance Reaction [...] mL, 3 Refills, Maintenance, 11/15/22 7:36:00 EDT, [facility]/pharmacy#[id number], Partial fill upon patient request if the [...] 07/03/22 7:50:00 EDT, Route to Pharmacy Electronically, [facility]/pharmacy #[id number], Partial fill upon patient request if the [...] oldest [Reference Range]: 1 Height 170 cm (01/28/23 11:13 AM) Weight 120.7 kg (01/28/23 11:13 AM) Pulse Rate [55-90 bpm] 87 bpm (01/28/23 11:13 AM) Body Mass Index [18.5-24.99 kg/m2] 41.76 kg/m2 *>HHI* (01/28/23 11:13 AM) Blood Pressure [90-138/55-84 mm Hg] 142/ 76mm Hg *H* (01/28/23 11:13 AM) Respiratory Rate [16-30 br/min] 16 br/mi n (01/28/23 11:13 AM) Temperature [96.8-100.4 DegF] 97.6 DegF (01/28/23 11:13 AM) Blood pressure sites Arm, right (01/28/23 11:13 AM) Temperature Route Temporal (01/28/23 11:13 AM) Weight Obtained Via Standing scale (01/28/23 11:13 AM) Social History Social History Type Response Smoking Status Former smoker; Tobac co user in household: No entered on: 05/26/13 Sex Patient Care team information Care Team Personnel Name: Rossy Salazar Position: [facility] PCO Associate Professional Member Role: PCP Address: Address: [address] [place] [address] [place] [address]- Name: Merlene Weldon NP Position: [facility] Associate Professional Member Role: Primary Care Nurse Address: Address: [address] [place] [address] Trauma and [place] [address]- Name: Catalino Michelle RN Position: [facility] RN Member Role: Primary Care Nurse Care Team Related Persons Name: VENESSA BELLA Address: home [address] [place] [address] Name: ED BELLA Address: home [address] [place] [address]
--- OUTSIDE RECORDS SUMMARY | 2023-06-13 00:06 | XMS_ITS | Continuity of Care Document ---
Author Organization [facility] Address [address] [place] [address] [address] [place] [address]- Care Team Providers Care Fire Assistant Name Role Phone Rossy Salazar Primary Care Physician Encounter [facility] Date(s): 01/28/23 - 02/27/[address] [place] [address]- Attending Physician: Admtr, Ar8 Admitting Physician: Admtr, Ar8 Referring Physician: Admtr, Ar8 Allergies, Adverse Reactions, [...] mL, 3 Refills, Maintenance, 11/15/22 7:36:00 EDT, [facility]/pharmacy#[id number], Partial fill upon patient request if [...] 7:50:00 EDT, Route to Pharmacy Electronically, [facility]/pharmacy #[id number], Partial fill upon patient [...] Care Team Personnel Name: Rossy Salazar Position: [facility] PCO Associate Professional Member Role: PCP Address: Address: [address] [place] [address] [place] [address]- Name: Merlene Weldon NP Position: S Associate Professional Member Role: Primary Care Nurse Address: Address: [address] [place] [address] Trauma and Acute [place] [address]- [place] Name: Catalino Michelle RN Position: [facility] RN Member Role: Primary Care Nurse Care Team Related Persons Name: JENA VENESSA Address: home [address] [place] [address] Name: ED BELLA Address: [address] [place] [address]
--- OUTSIDE RECORDS SUMMARY | 2023-06-13 00:06 | XMS_ITS | Continuity of Care Document ---
Author Organization [facility] Address [address] [place] [address]- Care Team Providers Care Woodwind Instrument Repairer Name Role Phone Rossy Salazar Primary Care Physician Encounter [facility] Date(s): 07/08/22 - 08/07/22 [facility] [address] [place] [address]- Allergies, Adverse Reactions, Alerts Substance Reaction Severity [...] Refills, Maintenance, 07/30/22 7:42:00 EDT, [id number], 170, cm, 07/03/22 7:53:00 EDT, Height Start Date: 07/30/22 Stop Date: 08/29/22 Status: Ordered Flonase 50 mcg/inh nasal spray 1 sprays, Nares, Both, 2 times a day, # 16 Gm, 4 Refills, Maintenance, 07/03/22 7:50:00 EDT, [place],[facility]/pharmacy #[id number], Partial fill upon patient request if [...] 07/03/22 7:50:00 EDT, Route to Pharmacy Electronically, [facility]/pharmacy #[id number], Partial fill upon patient request if [...] Associate Professional Member Role: PCP Address: Address: [address] [place] [address] [place] [address]- [place] Name: Merlene Weldon NP Position: [facility] Associate Professional Member Role: Primary Care Nurse Address: Address: [address] [place] [address] Trauma [place] [address]- [place] Name: Catalino Michelle RN Position: S RN Member Role: Primary Care Nurse Care Team Related Persons Name: VENESSA BELLA Address: home [address] [place] [address] Name: ED BELLA Address: [address] [place] [address]
--- OUTSIDE RECORDS SUMMARY | 2023-06-13 00:06 | XMS_ITS | Continuity of Care Document ---
Author Organization [facility] Adult Address [address] [place] [address]- Care Team Providers Care Road Freight Firer Name Role Phone Rossy Salazar Primary Care Physician Encounter [facility] Date(s): 11/15/22 - 12/15/22 [facility] Adult [address] [place] [address]- Allergies, Adverse Reactions, Alerts Substance Reaction Severity [...] Gm, 4 Refills, Maintenance, 07/03/22 7:50:00 EDT, [id number], Partial fill upon patient request if the prescription is for a schedule II opioid drug., 1 sprays Nares, Both 2 times a day, 170, c... Start Date: 07/03/22 Status: Ordered Flonase Allergy Relief 50 mcg/inh nasal spray 2 sprays, Nares, Both, Daily, # 15.8 mL, 3 Refills, Maintenance, 11/15/22 7:36:00 EDT, [facility]/pharmacy#[id number], Partial fill upon patient request if the [...] to Pharmacy Electronically, [facility]/pharmacy #[id number], Partial fill upon patient request [...] Care Team Personnel Name: Rossy Salazar Position: [facility] PCO Associate Professional Member Role: PCP Address: Address: [address] [place] [address] [place] [address]- [place] Name: Merlene Weldon NP Position: [facility] Associate Professional Member Role: Primary Care Nurse Address: Address: [address] [place] [address] Trauma [place] [address]- [place] Name: Catalino Michelle RN Position: [facility] RN Member Role: Primary Care Nurse Care Team Related Persons Name: VENESSA BELLA Address: home [address] [place] [address] Name: ED BELLA Address: [address] [place] [address]
--- OUTSIDE RECORDS SUMMARY | 2023-06-13 00:06 | XMS_ITS | Continuity of Care Document ---
Author Organization [facility] Address [address] [place] [address] [address] [place] [address]- Care Team Providers Care Fuel Yard Operator Name Role Phone Rossy Salazar Primary Care Physician Encounter [facility] Date(s): 12/24/22 - 01/23/[address] [place] [address]- Allergies, Adverse Reactions, Alerts Substance Reaction Severity [...] Gm, 4 Refills, Maintenance, 07/03/22 7:50:00 EDT, [id number], Partial fill upon patient request if the prescription is for a schedule II opioid drug., 1 sprays Nares, Both 2 times a day, 170, c... Start Date: 07/03/22 Status: Ordered Flonase Allergy Relief 50 mcg/inh nasal spray 2 sprays, Nares, Both, Daily, # 15.8 mL, 3 Refills, Maintenance, 11/15/22 7:36:00 EDT, [facility]/pharmacy#[id number], Partial fill upon patient request if the [...] Associate Professional Member Role: PCP Address: Address: [address] [place], [place] [address], [place] [address]- [place] Name: Merlene Weldon NP Position: [facility] Associate Professional Member Role: Primary Care Nurse Address: Address: [address] [place] [address] Trauma and [place] [address]- [place] Name: Catalino Michelle RN Position: [facility] RN Member Role: Primary Care Nurse Care Team Related Persons Name: VENESSA BELLA Address: home [address] [place] [address] Name: ED BELLA Address: [address] [place] [address]
--- OUTSIDE RECORDS SUMMARY | 2023-06-13 00:06 | XMS_ITS | Continuity of Care Document ---
Author Organization [facility] Address [address] [place] [address] [address] [place] [address]- Care Team Providers Care Ham Doctor Name Role Phone Rossy Salazar Primary Care Physician Encounter [facility] Date(s): 12/31/22 - 01/30/[address] [place], [place] [address] Attending Physician: Admtr, Deepa Admitting Physician: AdmtrDeepa Referring Physician: Admtr, Ar8 [...] Care Team Personnel Name: Rossy Salazar Position: [facility] PCO Associate Professional Member Role: PCP Address: Address: [address] [place] [address] [place] [address]- [place] Name: Merlene Weldon NP Position: [facility] Associate Professional Member Role: Primary Care Nurse Address: Address: [address] [place] [address] Trauma and Acute [place] [address]- [place] Name: Catalino Michelle RN Position: S RN Member Role: Primary Care Nurse Care Team Related Persons Name: VENESSA BELLA Address: home [address] [place] [address] Name: ED BELLA Address: [address] [place] [address]
--- OUTSIDE RECORDS SUMMARY | 2023-06-13 00:06 | XMS_ITS | Continuity of Care Document ---
Author Organization [facility] Address [address] [place] [address]- Care Team Providers Care Paint Formulator Name Role Phone Rossy Salazar Primary Care Physician Encounter [facility] Date(s): 02/25/23 - 03/27/23 [facility] [address] [place] [address] Attending Physician: Admtr, Deepa Admitting Physician: Admtr, Ar8 Referring Physician: Admtr, [...] mL, 3 Refills, Maintenance, 11/15/22 7:36:00 EDT, [facility]/pharmacy#[id number], Partial fill upon patient request if the [...] EDT, Route to Pharmacy Electronically, [facility]/pharmacy #[id number], Partial fill upon patient request if the [...] Associate Professional Member Role: PCP Address: Address: [address] [place] [address] [place] [address]- [place] Name: Merlene Weldon NP Position: S Associate Professional Member Role: Primary Care Nurse Address: Address: [address] [place] [address] Trauma and [place] [address]- [place] Name: Catalino Michelle RN Position: [facility] RN Member Role: Primary Care Nurse Care Team Related Persons Name: VENESSA BELLA Address: home [address] [place] [address] Name: ED BELLA Address: [address] [place] [address]
--- OUTSIDE RECORDS SUMMARY | 2023-06-13 00:06 | XMS_ITS | Continuity of Care Document ---
Author Organization [facility] Address [address] [place] [address]- Care Team Providers Care Dealer Sales Manager Name Role Phone Rossy Pierre Primary Care Physician Encounter [facility] Date(s): 06/19/22 - 06/26/22 [facility] [address] [place] [address]- Attending Physician: Not on Staff, Attending MD Referring Physician: Rossy Pierre Allergies, Adverse Reactions, Alerts Substance Reaction Severity [...] 2 times a day, # 16 Gm, 0 Refills, Maintenance, 06/19/22 10:12:00 EDT, [id number], Partial fill upon patient request if the prescription is for a schedule II opioid drug., 1 sprays Nares, Both 2 times a day, 170,... Start Date: 06/19/22 Status: Ordered Folic Acid Daily, 0 Refills, Maintenance, 06/19/22 9:31:00 EDT, Partial fill upon patient request if the prescription is for a schedule II opioid drug. Start Date: 06/19/22 Status: Ordered lisinopril 10 mg oral tablet 10 mg, 1, tablet, By Mouth, Daily, # 30 tablet, Refills 0, Tot. Refills 0, Maintenance, 06/19/22 10:16:00 EDT, Route to Pharmacy Electronically, [facility]/pharmacy #[id number], Partial fill upon patient request if the prescription is for a schedule II opioid drug... Start Date: 06/19/22 Status: Ordered methotrexate 2.5 mg oral tablet 1 tablet = 2.5 mg, By Mouth, Every week, # 4 tablet, 0 Refills, Maintenance, 06/19/22 9:31:00 EDT, Tablet, Partial fill upon patient request if the prescription is for a schedule II opioid drug. Start Date: 06/19/22 Status: Ordered Pepcid 20 mg oral tablet 1 tablet = 20 mg, By Mouth, 2 times a day, # 180 tablet, 1 Refills, Maintenance, 06/19/22 10:12:00 EDT, Tablet, [facility]/pharmacy #[id number], Partial fill upon patient request if the prescription is for a schedule II opioid drug., 170, cm, 06/19/22 9:25:00 EDT,... Start Date: 06/19/22 Status: Ordered Problem List [...] liver 1 Confirmed Active 1US Abdomen 11/02/2021 Procedures Procedure Date Related Diagnosis Body Site Status Barium swallow 1 11/16/20 Complete d Recurrent Inguinal Herna 07/11/20 Completed Ganglion cyst 06/05/20 Completed Endoscopy 2 12/10/19 Completed Endoscopy 3 07/13/12 Completed Endoscopy 4 05/03/04 Completed Historical Knee Arthroscopy Completed Lung biopsy sample Comple brian 1Spontaneous Reflux. Normal. 2Visually Normal. Middle Esophagus Normal. 3Normal 4Normal Vital Signs Most recent to oldest [Reference Range]: 1 2 3 Height 170 cm (06/20/22 7:59 AM) 170 cm (06/19/22 2:12 PM) 170 cm (06/19/22 10:16 AM) Weight 116.6 kg (06/20/22 7:59 AM) 116.6 kg (06/19/22 2:12 PM) 116.6 kg (06/19/22 9:25 AM) Oxygen Saturation [94-100 %] 98 % (06/19/22 9:25 AM) Pulse Rate [55-90 bpm] 82 bpm (06/19/22 9:25 AM) Body Mass Index [18.5-24.99 kg/m2] 40.35 kg/m2 *>HHI* (06/19/22 9:25 AM) Blood Pressure [90-138/55-84 mm Hg] 130/93mm Hg (06/19/22 10:16 AM) 143/95mm Hg *H* (06/19/22 9:25 AM) Blood pressure sites Arm, left (06/19/22 9:25 AM) Social History Social History Type Response Smoking Status Former smoker; Tobac co user in household: No entered on: 05/26/13 Sex Note * Christine Serrano MA: PERFORM, SIGN, VERIFY Event Display: Patient Education/Instruction Authored Date: [id number] [facility] *PREETHI Siddiqui Clinical Summary Name KATIA BELLA Age 51 Years 1970 PCP Pearl WHITMAN, Rossy PCP Visit Date 06/19/2022 09:12:00 Patient Instructions We will call you to schedule home sleep study, echo. Please go to the lab for the stool sample. We will arrange another opinion rheumatology. Go to??[email or web address] Select?? Sign Up ??on the left side Review Privacy and Terms of Use?? Complete all field under??Sign up for an account After completing, select??Enroll Additional Instructions: Scheduled Appointments?? Future Appointments ?*[facility] ?[address]??[place],??[place],??[address] ?Phone:??--?Fax:??-- ?Appt. Date:??07/03/2022?9:20 AM ?Scheduled Provider:??Pearl WHITMAN, Rossy Follow-Up Instructions ?? 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 Discuss any questions related to medications with your provider. Medications to Continue Taking That Have Changed [facility]/pharmacy #[id number], [address] [place] [phone], [phone] - Famotidine (Pepcid 20 mg oral tablet) 1 tab(s) Oral twice a day. Refills: 1. Next Dose: - Fluticasone Nasal (Flonase 50 mcg/inh nasal spray) 1 spray(s) Nares, Both twice a day. Refills: 0. Next Dose: - Lisinopril (lisinopril 10 mg oral tablet) 1 tab(s) Oral Daily. Refills: 0. Next Dose: Medications to Continue with No Changes These medications were not printed or sent to your pharmacy Folic Acid Daily. Next Dose: Methotrexate (methotrexate 2.5 mg oral tablet) 1 tab(s) Oral every week. Next Dose: No Longer Take the Following Medications Aspirin (Aspir 81) 81 Milligram Oral Daily. Budesonide-Formoterol (Symbicort 160mcg/4.5mcg Inhaler) 2 puff(s) Inhalation Daily. Refills: 11. Cetirizine (ZyrTEC 10 mg oral tablet) 1 tab(s) Oral Daily. Cetirizine (ZyrTEC 10 mg oral tablet) 1 tab(s) Oral Daily as needed for allergy symptoms. Diltiazem (diltiazem 360 mg/24 hours oral capsule, extended release) 1 capsule Oral Daily. Fluticasone (fluticasone propionate) Inhalation. Lorazepam (Ativan 1 mg oral tablet) 1 tab(s) Oral Daily at Bedtime as needed Spasm for 7 Days. Refills: 0. Orphenadrine (orphenadrine 100 mg oral tablet, extended release) 1 tab(s) Oral twice a day for 7 Days. Refills: 0. Oxycodone / Acetaminophen (Percocet-5/325 325 mg-5 mg oral tablet) 1 tab(s) Oral every 6 hours as needed Pain , Moderate for 3 Days. Refills: 0. Pantoprazole (pantoprazole 40 mg oral granule) 1 Each Oral Daily. PredniSONE (prednisone 20 mg oral tablet) 2 tab(s) Oral Daily for 7 Days. Refills: 0. Allergy Info:?? Bactrim; metoprolol Medications Given This Visit Future Orders ?H. pylori Ab? Order Date:06/19/22?- Complete on or after?06/19/22 ?Echo Complete? Order Date:06/19/22?- Complete on or after?06/19/22 Vital Signs Height 170 cm Weight 116.6 kg BMI 40.35 kg/m2 Blood Pressure 130 mm Hg/93 mm Hg Temperature Pulse Rate 82 bpm Respiratory Rate 02 Sat Mode of Delivery 98 %/ You can now view a summary of your hospital visit from the comfort of your home through a free online portal called [employer]. [employer] is a website that allows you to securely view your medical information including discharge summary, medications and follow-up visits. ??You can alsosend a secure electronic message to your doctor???s office to request appointments, renew medications or just ask a question. You can enroll at [email or web address] or register during your next office visit. [...] you may find a [facility] provider by calling [facility] [employer] [facility] at [phone]. For information about the plan of care [...] Team Personnel Name: Merlene Weldon NP Position: S Associate Professional Member Role: Primary Care Nurse Address: Address: [address] [place] [address] Trauma and [place] [address]- Name: Rossy Pierre Position: [facility] PCO Associate Professional Member Role: PCP Address: Address: [address] [place] [address] [place] [address]- Name: Viviana ZAMORA, Catalino Position: S RN Member Role: Primary Care Nurse Care Team Related Persons Name: VENESSA BELLA Address: home [address] [place] [address] Name: ED BELLA Address: [address] [place] [address]
--- NOTE | 2023-06-13 00:28 | ED_ITS ---
HPI - General Adult General Chief complaint: Allergic Reaction Stated complaint: rash Time Seen by Provider: 06/13/23 00:15 Source: patient, RN notes reviewed and old records reviewed Mode of arrival: ambulatory Limitations: no limitations History of Present Illness HPI narrative: 52-year-old male presents for evaluation of rash He reports his rashes to his neck, abdomen chest, back, bilateral arms hands His symptoms started a little over 24 hours ago after drinking NyQuil for a cough Patient reports that he took NyQuil again tonight and feels as though his rash worsened. He also use Benadryl around 7:00 p.m. last night with some improvement in his symptoms The rash is very itchy He denies any fevers or chills Related Data Previous Rx's ?Medication ?Instructions ?Recorded cyclobenzaprine 10 mg tablet 10 mg PO Q8H #14 tabs 03/24/22 naproxen 500 mg tablet 500 mg PO BID PRN pain #14 tabs 03/24/22 ondansetron 4 mg disintegrating 4 mg PO Q8H #14 tabs 03/24/22 tablet benzonatate 200 mg capsule 200 mg PO TID PRN cough #20 caps 06/13/23 prednisone 20 mg tablet 40 mg (2 x 20 mg) PO DAILY #6 tabs 06/13/23 Allergies Allergy/AdvReac Type Severity Reaction Status Date / Time Calcium Channel Blocking Allergy Shortness Verified 06/12/23 23:22 Agent Dilt of Breath Review of Systems Constitutional: Constitutional: Denies body ache(s), Denies chills and Denies fever(s) Eyes: Eyes: Denies blurry vision ENT: Denies sore throat Cardiovascular: Cardiovascular: Denies chest pain and Denies dyspnea Respiratory: Respiratory: Reports cough and Denies dyspnea Gastrointestinal: Gastrointestinal: Denies abdominal pain, Denies nausea and Denies vomiting Genitourinary: Genitourinary: Denies dysuria Musculoskeletal: Musculoskeletal: Denies back pain Integumentary/Breasts: Skin/Breast: Reports pruritus and Reports rash PMFSH Past Medical History Medical History Anal fissure GERD (gastroesophageal reflux disease) Hernia Surgical History History of lung biopsy Social History Social History Smoked in Last 30 Days: No Use of substances other than those prescribed or required for medical reasons: No Advance Directives: No Advance Directives Information Provided: No Physical Exam ED Vital Signs: Vital Signs - 24 hr 06/12/23 23:13 06/12/23 23:53 Temperature 97.9 F 97.4 F Pulse Rate 112 H 111 H Respiratory Rate 18 17 Blood Pressure 149/105 H 143/90 H Pulse Oximetry 95 95 Oxygen Delivery Method Room Air Room Air BMI result Body Mass Index 40.7 Const General: healthy appearing, comfortable, no acute distress, alert and awake Nutritional Appearance: well nourished Orientation/consciousness: patient oriented x3 HENMT Other: No oral or perioral or retropharyngeal edema, airway widely patent Head: Yes normocephalic and Yes atraumatic Throat: Yes posterior oropharynx normal Eyes Eyelids: Yes eyelids normal Conjunctivae: conjunctivae normal Sclerae: sclerae normal Corneas: corneas normal Pupils: Equal, round and reactive pupils present EOM: EOMs intact bilaterally Neck Neck: Yes full ROM Resp Effort & Inspection: normal respiratory effort, able to speak in complete sentences, no audible wheezes and not labored Auscultation: clear to auscultation bilaterally Skin Other: Patient has no real diffuse urticaria rash mostly to his neck, upper chest with some scattered smaller urticaria to the left flank, lower abdomen, bilateral upper extremities. No facial involvement. General skin exam: elasticity normal Neuro General: patient oriented x3 Cranial nerves: Yes Equal, round and reactive pupils present and Yes Bilaterally intact EOM present Cognition (Neuro): normal cognition Extrem Other: Moving all extremities well without any obvious deformities Course Reevaluation(s) Reevaluation #1: Patient re-evaluated, he has very mild improvement in his urticaria. He continues to have itching. Will discharge the patient with prednisone, Benadryl. He is requesting something for his cough and will discharge home benzonatate Time: 01:08 Medications Administered Discontinued Medications Generic Name Dose Route Start Last Admin Trade Name Freq PRN Reason Stop Dose Admin Diphenhydramine HCl 25 mg 06/13/23 00:23 06/13/23 00:33 Diphenhydramine Hcl 50 Mg/Ml Vial IVPUSH 06/13/23 00:24 25 mg ONCE ONE Administration Famotidine 20 mg 06/13/23 00:23 06/13/23 00:33 Famotidine/Pf 20 Mg/2 Ml Vial IVPUSH 06/13/23 00:24 20 mg ONCE ONE Administration Methylprednisolone Sodium Succinate 125 mg 06/13/23 00:23 06/13/23 00:33 Methylprednisolone Sod Succ 125 Mg/2 Ml Vial IVPUSH 06/13/23 00:24 125 mg ONCE ONE Administration Medical Decision Making Medical Decision Making MDM Narrative: 52-year-old male presents for evaluation a rash shortly after drinking not ?. The NyQuil was mixed with at least Tylenol. It is likely he has an allergic reaction to 1 of the medications or dies within the NyQuil. He has a dry cough but lungs are clear to auscultation without stridor. The patient is quite well appearing. Will treat with Benadryl, Solu-Medrol, Pepcid. Given that his symptoms started over 24 hours ago I have very low suspicion for progressive allergic reaction or anaphylaxis. Differential Diagnosis Differential Diagnoses: The differential diagnosis associated with the presentation includes Urticaria Allergic reaction Dermatitis Cellulitis Lab Data Labs: Lab Results 06/13/23 Range/Units 00:03 Influenza Type A (PCR) NEGATIVE (Negative) Influenza Type B (PCR) NEGATIVE (Negative) RSV RNA Qual (PCR) NEGATIVE (Negative) SARS-CoV-2 RNA (RT-PCR) NEGATIVE (Negative) Discharge Plan Discharge Clinical Impression: Urticaria Patient Disposition: Home, Self-Care Instructions: Urticaria (ED) Additional Instructions: Your symptoms are most likely related to an allergic reaction Continue to use Benadryl every 4-6 hours as needed for rash and itching Continue Benadryl 40 mg for the next 3 days This may make you sleepy, did not drink alcohol or drive after taking Follow-up with your primary doctor, return for new or worsening symptoms I recommend that you do not use that NyQuil again as it appears you are allergic to it Prescriptions: New benzonatate 200 mg capsule 200 mg PO TID PRN (Reason: cough) Qty: 20 0RF prednisone 20 mg tablet 40 mg PO DAILY Qty: 6 0RF No Action ondansetron 4 mg tablet,disintegrating 4 mg PO Q8H Qty: 14 0RF naproxen 500 mg tablet 500 mg PO BID PRN (Reason: pain) Qty: 14 0RF cyclobenzaprine 10 mg tablet 10 mg PO Q8H Qty: 14 0RF Print Language: Slovenian
[2023-06-13] MEDS: methylPREDNISolone Sod Succ 125 MG/2 ML VIAL IVPUSH (00:33)
[2023-06-13] MEDS: diphenhydrAMINE HCL 50 MG/ML VIAL 25 MG IVPUSH (00:33)
[2023-06-13] MEDS: Famotidine/PF 20 MG/2 ML VIAL IVPUSH (00:33)
[2023-06-13 00:46] LABS: Influenza A PCR NEGATIVE (Negative); Influenza B PCR NEGATIVE (Negative); Resp Syncy Virus RNA Qual PCR NEGATIVE (Negative); SARS COV2 PCR INHOUSE NEGATIVE (Negative)
[2023-06-13 01:25] VITALS: BP 143/84; PULSE 88; RESP 18; TEMP 36.1
== END 2023-06-13 01:26 | disposition home or self-care (01) ==
PROVIDERS: Emergency Provider Internal Medicine; PCP Physician Assistant Medical
DX: L50.0 Allergic urticaria (principal); R05.9 Cough, unspecified; Z03.818 Encounter for observation for suspected exposure to other biological agents ruled out
CPT/HCPCS: 0241U; 71046; 96374; 96375; 99284; J1200; J2919; J2930

== ENCOUNTER 2024-05-25 21:16 | Emergency (ER) | payer OTHER, SELFPAY ==
--- NOTE | 2024-05-25 | ECG_ITS ---
Test Reason : SOB Blood Pressure : */* mmHG Vent. Rate : 75 BPM Atrial Rate : 75 BPM P-R Int : 144 ms QRS Dur : 86 ms QT Int : 366 ms P-R-T Axes : 52 -17 21 degrees QTcB Int : 408 ms Normal sinus rhythm Normal ECG No previous ECGs available Referred By: Generic ED Physician Electronically Signed By: MARCELO VAZQUEZ MD
--- NOTE | ~2024-05-25 | XR_ITS ---
CLINICAL HISTORY: sob 1 view chest x-ray Comparison: CR/SR - XR CHEST 2V - 06/12/23 23:35 EDT Findings: Mild bilateral atelectasis. No significant pleural effusion or pneumothorax. Prominent cardiac silhouette. No acute fracture. IMPRESSION: Mild bilateral atelectasis. This document has been electronically signed by: Jairon Sue MD on 05/25/2024 22:12:42
[2024-05-25 21:23] VITALS: BP 169/94; PULSE 75; RESP 20; TEMP 36; O2SAT 95; BMI 42.1
[2024-05-25 21:35] LABS: Basophils Percent Auto 0.3 % (0-2); Eosinophils Absolute Auto 0.4 X10*3/uL (0.0-0.4); Eosinophils Percent Auto 5.4 % (0-4); Hematocrit 44.8 % (42.0-52.0); Hemoglobin 15.5 g/dl (14.0-18.0); Imm Gran Abs Auto 0.01 X10*3/uL (0.00-0.03); Imm Gran Pct Auto 0.1 % (0.0-0.4); Lymphocytes Absolute Auto 3.9 X10*3/uL (1.2-4.9); MANUAL DIFF FLAG NO; Mean Corpuscular HGB Conc 34.6 g/dl (31.0-36.0); Mean Corpuscular Hemoglobin 28.1 pg (27.0-33.0); Mean Corpuscular Volume 81.3 fL (80.0-98.0); Mean Platelet Volume 9.6 fL (9.4-12.4); Monocytes Absolute Auto 0.5 X10*3/uL (0.1-1.2); Monocytes Percent Auto 6.3 % (2-11); Neutrophils Absolute Auto 2.7 x10*3/uL (2.0-8.3); Neutrophils Percent Auto 35.9 % (45-73); Platelet Count 206 X10*3/uL (160-400); Red Blood Count 5.51 X10*6/uL (4.60-5.80); Red Cell Distribution Width 12.9 % (11.0-16.0); White Blood Count 7.6 X10*3/uL (4.8-10.8)
[2024-05-25 21:51] LABS: Alanine Aminotransferase 39 U/L (0-40); Albumin Level 4.2 g/dL (3.5-5.0); Alkaline Phosphatase 155 U/L (39-117); Anion Gap 12 (12-20); Aspartate Amino Transferase 27 U/L (5-37); Bilirubin Total 0.3 mg/dL (0.0-1.0); Blood Urea Nitrogen 12 mg/dL (9-16); Calcium 9.3 mg/dL (8.4-10.2); Carbon Dioxide 24 mmol/L (22-29); Chloride 109 mmol/L (96-108); Creatinine Clr Calc Pharmacy 127.3; Estimated Glomerular Filt Rate > 60; Glucose Random 96 mg/dL (60-115); Potassium 4.1 mmol/L (3.3-5.1); Sodium 141 mmol/L (135-145); Total Protein 7.7 g/dL (6.5-8.0)
--- NOTE | 2024-05-25 22:02 | ED.SOB ---
HPI - SOB/Dyspnea General Chief Complaint: Dyspnea Stated Complaint: SOB Time Seen by Provider: 05/25/24 21:50 Source: patient and family Mode of arrival: ambulatory Limitations: no limitations History of Present Illness ED Provider: Dr. Neda Crawford HPI Narrative: Patient comes to the emergency room complaining of cough, shortness of breath, chest tightness. Patient states that about 4-5 days ago he was diagnosed with pneumonia at urgent Care, given Augmentin, prednisone and an inhaler. Patient denies any history of asthma or COPD, patient is not a smoker. Patient states that he is not getting any better after nearly complaining the above-mentioned treatment. Patient denies fever chills, complaining of body aches Related Data Previous Rx's ?Medication ?Instructions ?Recorded cyclobenzaprine 10 mg tablet 10 mg PO Q8H #14 tabs 03/24/22 naproxen 500 mg tablet 500 mg PO BID PRN pain #14 tabs 03/24/22 ondansetron 4 mg disintegrating 4 mg PO Q8H #14 tabs 03/24/22 tablet benzonatate 200 mg capsule 200 mg PO TID PRN cough #20 caps 06/13/23 prednisone 20 mg tablet 40 mg (2 x 20 mg) PO DAILY #6 tabs 06/13/23 benzonatate 100 mg capsule 100 mg PO TID PRN cough #15 caps 05/25/24 Allergies Allergy/AdvReac Type Severity Reaction Status Date / Time Calcium Channel Blocking Allergy Shortness Verified 05/25/24 21:25 Agent Dilt of Breath Review of Systems Review of Systems: Constitutional : No Weight loss, No Fever, No Chills, No Night Sweats, complaining of generalized malaise, body aches ENT/Mouth : No Hearing loss, No Ear Pain, No Nasal Congestion, No Sinus Pain, No Hoarseness, No sore throat, No Rhinorrhea, No Swallowing Difficulty Eyes: No Eye Pain, No Swelling, No Redness, No Foreign Body, No Discharge, No Vision Changes Cardiovascular : No Chest Pain, denies orthopnea, edema or palpitations Respiratory : Complaining of cough for a week, No Wheezing, No Smoke Exposure, complaining of Dyspnea Gastrointestinal : No Nausea, No Vomiting, No Diarrhea, No Constipation, No abdominal Pain, No Hematochezia, No Melena Genitourinary : no irregular bleeding, No Dysuria, No Urinary Frequency, No Hematuria, No Urinary Incontinence, No Urgency, No Flank Pain, No Urinary Flow Changes, No Hesitancy Musculoskeletal : No joint pain, No Myalgias, No Joint Swelling Skin : No Skin Lesions, No rash Neuro : No Weakness, No Numbness, No Paresthesias, No Loss of Consciousness, No Dizziness, No Headache Psych : No Anxiety/Panic, No Depression, No SI/HI/AH/VH, No Social Issues, Heme/Lymph: No Bruising, No Bleeding,No Lymphadenopathy Endocrine : No Polyuria, No Polydipsia, No Temperature Intolerance [facility] Past Medical History Medical History Hernia Anal fissure GERD (gastroesophageal reflux disease) Surgical History History of lung biopsy Social History Social History Advance Directives: No Advance Directives Information Provided: No Do you have a plan to hurt others: No Plan Physical Exam Vital Signs: Vital Signs: Last Vital Signs Temp 96.8 F 05/25/24 21:23 Pulse 80 05/25/24 22:18 Resp 20 05/25/24 21:23 BP 169/94 H 05/25/24 21:23 Pulse Ox 96 05/25/24 22:22 O2 Del Method Room Air 05/25/24 22:18 BMI result Body Mass Index 42.1 Const: Other: Appearance: Alert. Oriented X3. No acute distress. Eyes: Pupils equal, round and reactive to light. ENT: Pharynx normal. Neck: Normal inspection. Neck supple. No lymph nodes noted. No crepitus CVS: Normal heart rate and rhythm. Pulses normal. Normal S1 and S2 Respiratory: No respiratory distress. Breath sounds normal. No Wheezing. No rales Abdomen: Soft and nontender. No rigidity. No distention. Skin: Skin warm and dry. Normal skin color. Normal skin turgor. Extremities: No lower extremity edema. No Lacerations. No Rash Neuro: Oriented X 3. No motor deficit. No sensory deficit. Moving all extremities. No slurred speech. CN 2 through 12 grossly intact Psych: calm, cooperative, normal affect Medical Decision Making Medical Decision Making MDM Narrative: My interpretation of labs: Patient's hematology within normal limits, normal white blood cell count, normal chemistry, more normal LFTs, troponin negative, serology negative for flu RSV and COVID Chest x-ray does not show any acute abnormality Patient was ambulated around the emergency room, oxygen saturation steady 97% and above. Patient likely having bronchitis and recovering. No need for antibiotics at this time. Differential Diagnosis Differential Diagnoses: The differential diagnosis associated with the presentation includes (Pneumonia, COVID, RSV, influenza, viral UR) Lab Data [facility] Lab Attestation statement: I reviewed the patient's lab results. 05/25/24 21:26 05/25/24 21:26 Labs: Lab Results 05/25/24 Range/Units 21:26 WBC 7.6 (4.8-10.8) X10*3/uL RBC 5.51 (4.60-5.80) X10*6/uL Hgb 15.5 (14.0-18.0) g/dl Hct 44.8 (42.0-52.0) % MCV 81.3 (80.0-98.0) fL MCH 28.1 (27.0-33.0) pg MCHC 34.6 (31.0-36.0) g/dl RDW 12.9 (11.0-16.0) % Plt Count 206 (160-400) X10*3/uL MPV 9.6 (9.4-12.4) fL Immature Gran % (Auto) 0.1 (0.0-0.4) % Neut % (Auto) 35.9 L (45-73) % Lymph % (Auto) 52.0 H (20-40) % [place] % (Auto) 6.3 (2-11) % Eos % (Auto) 5.4 H (0-4) % Baso % (Auto) 0.3 (0-2) % Lymph # (Auto) 3.9 (1.2-4.9) X10*3/uL [place] # (Auto) 0.5 (0.1-1.2) X10*3/uL Eos # (Auto) 0.4 (0.0-0.4) X10*3/uL Baso # (Auto) 0.0 (0.0-0.2) X10*3/uL Abs Immat Gran (auto) 0.01 (0.00-0.03) X10*3/uL Absolute Neuts (auto) 2.7 (2.0-8.3) x10*3/uL Absolute Nucleated RBC 0.000 (0.0-0.012) X10*3/uL Nucleated RBC % (auto) 0.0 (0.0-0.2) /100WBC Sodium 141 (135-145) mmol/L Potassium 4.1 (3.3-5.1) mmol/L Chloride 109 H (96-108) mmol/L Carbon Dioxide 24 (22-29) mmol/L Anion Gap 12 (12-20) BUN 12 (9-16) mg/dL Creatinine 0.83 (0.5-1.4) mg/dL Estim Creat Clear Calc 127.3 Estimated GFR > 60 Random Glucose 96 (60-115) mg/dL Calcium 9.3 (8.4-10.2) mg/dL Total Bilirubin 0.3 (0.0-1.0) mg/dL AST 27 (5-37) U/L ALT 39 (0-40) U/L Alkaline Phosphatase 155 H (39-117) U/L Troponin I High Sens < 2.7 (<3.5-35.0) ng/L B-Natriuretic Peptide < 10 (<100) pg/mL Total Protein 7.7 (6.5-8.0) g/dL Albumin 4.2 (3.5-5.0) g/dL Influenza Type A (PCR) NEGATIVE (Negative) Influenza Type B (PCR) NEGATIVE (Negative) RSV RNA Qual (PCR) NEGATIVE (Negative) SARS-CoV-2 RNA (RT-PCR) NEGATIVE (Negative) Independent Interpretation I performed an independent interpretation of an: Plain X-Ray Radiology Impression Discussion of test interpretation with radiology: I have reviewed the radiologist's reading. Radiologist Impression: Mild bilateral atelectasis. No significant pleural effusion or pneumothorax. Prominent cardiac silhouette. No acute fracture. IMPRESSION: Mild bilateral atelectasis Independent Historian Clinical information obtained from an independent historian. History obtained from or confirmed by: Spouse and Other (Son and daughter) Discharge Plan Discharge Clinical Impression: Bronchitis Patient Disposition: Home, Self-Care Instructions: Acute Bronchitis (ED) Additional Instructions: Please follow-up with your primary care physician tomorrow. If you have any worsening or new symptoms, please return to the emergency room or call 911 Prescriptions: New benzonatate 100 mg capsule 100 mg PO TID PRN (Reason: cough) Qty: 15 0RF No Action ondansetron 4 mg tablet,disintegrating 4 mg PO Q8H Qty: 14 0RF naproxen 500 mg tablet 500 mg PO BID PRN (Reason: pain) Qty: 14 0RF cyclobenzaprine 10 mg tablet 10 mg PO Q8H Qty: 14 0RF benzonatate 200 mg capsule 200 mg PO TID PRN (Reason: cough) Qty: 20 0RF prednisone 20 mg tablet 40 mg PO DAILY Qty: 6 0RF Print Language: Georgian
[2024-05-25 22:11] LABS: Influenza A PCR NEGATIVE (Negative); Influenza B PCR NEGATIVE (Negative); Resp Syncy Virus RNA Qual PCR NEGATIVE (Negative); SARS COV2 PCR INHOUSE NEGATIVE (Negative)
[2024-05-25 22:18] VITALS: PULSE 80; O2SAT 96
[2024-05-25 22:22] VITALS: O2SAT 96
[2024-05-25 22:27] LABS: B Type Natriuretic Peptide < 10 pg/mL (<100)
[2024-05-25 23:31] LABS: Troponin-I High Sensitivity < 2.7 ng/L (<3.5-35.0)
[2024-05-25 23:51] VITALS: BP 131/89; PULSE 82; RESP 18; TEMP 36.4; O2SAT 97
[2024-05-26 00:03] VITALS: BP 131/89; PULSE 82; RESP 18; TEMP 36.4; O2SAT 97
== END 2024-05-26 00:03 | disposition home or self-care (01) ==
PROVIDERS: Emergency Provider Emergency Medicine; PCP Physician Assistant Medical
DX: J40 Bronchitis, not specified as acute or chronic (principal); R06.02 Shortness of breath
CPT/HCPCS: 0241U; 71045; 80053; 83880; 84484; 85025; 93005; 99283; 99284

== ENCOUNTER → 2024-05-25 21:27 | Outpatient (BNV) | payer OTHER, SELFPAY | PROVIDERS: Emergency Provider Emergency Medicine; PCP Physician Assistant Medical; Visit Provider Internal Medicine Cardiovascular Disease | DX: R06.02 Shortness of breath (principal) | CPT/HCPCS: 93010 ==

== ENCOUNTER → 2024-05-25 21:42 | Outpatient (BNV) | payer OTHER, SELFPAY | PROVIDERS: Emergency Provider Emergency Medicine; PCP Physician Assistant Medical; Visit Provider Radiology Diagnostic Radiology | DX: R06.02 Shortness of breath (principal) | CPT/HCPCS: 71045 ==